=== PATIENT | male | born 1950 | race Caucasian/White ===

== ENCOUNTER → 2016-10-20 | Outpatient (CLI) | payer OTHER ==
[~2016-10-20] MED LIST: ALPR1TAB3 PO; PARO10TA PO
[2016-10-20 15:05] LABS: URINE APPEARANCE CLEAR (CLEAR); URINE BILIRUBIN NEG (NEG); URINE COLOR DK YELLOW; URINE NITRITE NEG (NEG); URINE SPECIFIC GRAVITY 1.025 (1.000-1.030); UROBILINOGEN NEG (NEG)
[2016-10-20 15:09] LABS: MANUAL MICROSCOPIC REQUIRED? NO; REVIEW REQ? NO
[2016-10-20 15:19] LABS: BLOOD UREA NITROGEN 22 mg/dl (7-18); BUN/CREATININE RATIO 23.6 (10-20); CALCIUM 8.9 mg/dl (8.5-10.1); CARBON DIOXIDE 27 mmol/L (21-32); CHLORIDE 111 mmol/L (98-107); CREATININE 0.91 mg/dl (0.60-1.40); GLUCOSE 92 mg/dl (70-99); PHOSPHORUS 2.8 mg/dl (2.5-4.9); POTASSIUM 4.5 mmol/L (3.5-5.1); SODIUM 143 mmol/L (136-145)
[2016-10-20 15:41] LABS: URINE TOTAL PROTEIN 5.4 mg/dl (0-11.9)
== END ==
LOC: C.LAB1850 13:36
PROVIDERS: ATTEND Internal Medicine Nephrology
DX: N17.9 Acute kidney failure, unspecified (principal)

== ENCOUNTER → 2016-10-25 | Outpatient (CLI) | payer OTHER ==
--- NOTE | 2016-10-25 12:40 | DIAGNOSTIC IMAGING REPORT ---
ULTRASOUND KIDNEYS AND BLADDER CLINICAL HISTORY: Acute renal insufficiency. COMPARISON STUDY: Abdominal CT dated 08/30/2015. TECHNIQUE: Real-time, grayscale, and color flow sonography of the kidneys and bladder is performed. Images are reviewed in the transverse and longitudinal planes. FINDINGS: Kidneys: The kidneys demonstrate mild cortical thinning and are normal in echotexture. The right kidney measures 10.6 cm in length and the left kidney measures 11.9 cm in length. There is no hydronephrosis. No shadowing renal calculi are identified. There is no sonographic evidence of contour deforming renal mass lesion. No perinephric fluid is identified. Bladder: The bladder is normal in appearance. The right ureteral jet was seen. IMPRESSION: 1. There is mild renal cortical thinning. No hydronephrosis is seen. 2. The bladder was normal as imaged. Electronically signed by: Catrachito Apodaca M.D. 10/25/2016 12:39 PM Dictated Date/Time: 10/25/2016 12:37 PM
== END | disposition home or self-care (01) ==
LOC: C.ULTR 11:27
PROVIDERS: ATTEND Internal Medicine Nephrology
DX: N17.9 Acute kidney failure, unspecified (principal)

== ENCOUNTER 2017-10-17 19:24 | Observation (INO) | payer OTHER ==
[~2017-10-17] VITALS: Ht 175.3 cm; Wt 67.0 kg
[2017-10-17] MEDS ORDERED: ASPIRIN 81 MG CHEW PO STA (19:53)
--- NOTE | 2017-10-17 19:59 | EMERGENCY ROOM VISIT NOTE ---
History Report prepared by Dawn: Cait Hargrove Under the Supervision of: Dr. Catrachito Gonzalez M.D. First contact with patient: 19:44 Chief Complaint: CHEST PAIN Stated Complaint: CHEST PAIN R SIDE HARD TO BREATH Nursing Triage Summary: Pt reports chest pain that started this morning. Pt denies nausea, denies SOB. Pt does report at times difficulty breathing and used his inhaler with no relief. Pt reports pain on the right side denies radiation. Pt reports that he has a hx of right bundle branch block and moderate carotid stenosis. History of Present Illness The patient is a 66 year old male who presents to the Emergency Room with complaints of right sided chest pain beginning this morning. He denies any cough , colds, congestion, nausea, SOB, diaphoresis, recent long trips, history of cancer, history of blood clots, or heart attacks. He states his pain is tolerable but at its worse, he rates his pain as a 5/10 in severity. He also notes that deep breaths worsen his pain at times. The patient reports he has a history of cerebellar issues. Source of History: patient Onset: this morning Position: chest (right) Symptom Intensity: 5/10 in severity at its worse Modifying Factors (Worsening): other (deep breaths) Associated Symptoms: No diaphoresis, No cough, No SOB, No nausea Note: Negative colds, congestion, recent long trips, history of cancer, history of blood clots, or heart attacks Review of Systems See HPI for pertinent positives & negatives. A total of 10 systems reviewed and were otherwise negative. Past Medical & Surgical Medical Problems: (1) Anxiety (2) Anxiety (3) Depression Family History No pertinent family history Social History Smoking Status: Current Every Day Smoker Alcohol Use: none, other Drug Use: none Marital Status: Housing Status: lives with family Occupation Status: employed Current/Historical Medications Scheduled Aspirin (Aspirin Ec), 81 MG PO DAILY Cholecalciferol (Vitamin D3), 2,000 INTER.UNIT PO DAILY Scheduled PRN Albuterol Hfa (Ventolin Hfa), 2 PUFFS INH Q6H PRN for SOB/Wheezing Alprazolam (Xanax), 1 MG PO QID PRN for Anxiety Fluticasone Propionate (Nasal) (Flonase Allergy Relief), 2 SPRAYS SHOLA DAILY PRN for Allergy Symptoms Allergies Coded Allergies: Prednisone (Verified Allergy, Unknown, UNKNOWN, 7/29/16) CAN'T REMEMBER Physical Exam Vital Signs Date Time Temp Pulse Resp B/P (MAP) Pulse Ox O2 Delivery O2 Flow Rate FiO2 10/17/17 22:21 72 15 145/72 96 Room Air 10/17/17 20:31 78 18 134/65 97 Room Air 10/17/17 20:01 76 20 124/77 96 Room Air 10/17/17 19:40 74 20 146/69 98 Room Air 10/17/17 19:34 Room Air 10/17/17 19:33 Room Air 10/17/17 19:27 36.7 87 18 95 Physical Exam GENERAL: Patient is in no acute distress. HEENT: No acute trauma, normocephalic atraumatic, mucous membranes moist, no nasal congestion, no scleral icterus. NECK: No stridor, no adenopathy, no meningismus, trachea is midline. LUNGS: Clear to auscultation bilaterally, no wheeze, no rhonchi, breath sounds equal. HEART: Without murmurs gallops or rubs, regular rate and rhythm. CHEST: Tender over the right lateral mid chest wall with rib compression. No rash. No contusion ABDOMEN: Soft, nontender, bowel sounds positive, no hernias, no peritonitis. EXTREMITIES: No cyanosis or edema, full range of motion of all the joints without pain or difficulty, no signs for acute trauma. NEUROLOGIC: Oriented x 3, no acute motor or sensory deficits, no focal weakness. SKIN: No rash, no jaundice, no diaphoresis. Medical Decision & Procedures ER Provider Diagnostic Interpretation: Radiology results as stated below per my review and radiologist interpretation: CHEST ONE VIEW PORTABLE CLINICAL HISTORY: 66 years-old Male presenting with CHEST PAIN. TECHNIQUE: Portable upright AP view of the chest was obtained. COMPARISON: 08/30/2015. FINDINGS: Cardiomediastinal silhouette normal. Heterogeneity of lung parenchyma. Lungs and pleural spaces clear. Degenerative changes of the thoracic spine. Upper abdomen normal. IMPRESSION: 1. No acute cardiopulmonary disease. Electronically signed by: Ike Charles M.D. 10/17/2017 8:40 PM Dictated Date/Time: 10/17/2017 8:39 PM (CHEST FOR PE) ANGIO WITH CLINICAL HISTORY: 66 years-old Male presenting with ^CHEST PAIN--IF ABLE PLEASE EVALUATE THORACIC AORTA WELL. TECHNIQUE: Multidetector CT angiography of the chest was performed after administration of intravenous contrast. 3-D volumetric and/or maximum intensity projection (MIP) images were subsequently reconstructed for review. IV contrast: 115 mL of Optiray 320. A dose lowering technique was used consistent with the principles of ALARA (as low as reasonably achievable). COMPARISON: Chest x-ray from earlier the same day. CT DOSE (mGy.cm): The estimated cumulative dose is 336.34 mGy.cm. FINDINGS: Profiling Machine Setup Operator topogram: Unremarkable. Pulmonary vasculature: The study is adequate for assessment of the pulmonary vascular tree. Subsegmental filling defects consistent with acute pulmonary emboli the anterobasal and posterior basal right lower lobe. Main pulmonary artery is not enlarged. No flattening of the interventricular septum. No intracardiac filling defect. No reflux of contrast into the hepatic veins. Remaining chest: On soft tissue windows, normal thyroid and thoracic inlet. No axillary, supraclavicular, hilar, or mediastinal lymphadenopathy. Atherosclerosis of the aorta. Normal heart size. Coronary artery calcification. No pericardial or pleural effusion. Nonobstructing calculus at the upper pole of the left kidney. On lung windows, minimal dependent changes likely atelectasis. Solid peripheral 4 mm nodule in the posterior basal right lower lobe (series 4 image 109). Solid subpleural 6 mm nodule in the medial segment of the right middle lobe (series 4 image 88). Solid subpleural 5 mm nodule in the right lower lobe (series 4 image 178). Solid subpleural 3 mm nodule in the right lower lobe (series 4 image 178). Solid peripheral 4 mm nodule in the left lower lobe (series 4 image 160). Extensive paraseptal emphysematous changes/bullae at the apices centrilobular emphysematous changes at the apices also noted. Mild bronchial wall thickening. Airways patent. On bone windows, degenerative changes of the spine. IMPRESSION: 1. Acute pulmonary emboli in subsegmental pulmonary arteries of the right lower lobe. 2. Multiple solid pulmonary nodules measuring up to 6 mm. Follow-up per [employer] 2017 recommendations. 3. Extensive emphysematous changes/bullae at the apices and bronchial wall thickening likely smoking related lung injury. The report will be called/faxed according to standard departmental protocol. Please refer to below summary of Fleischner Society 2017 recommendations for follow-up of incidental CT nodules (H Christopher et al. Guidelines for management of incidental pulmonary nodules detected on CT images: From the Fleischner Society 2017. Radiology 2017; 284: 228-243.) SOLID NODULES Single nodule; size < 6 mm * Low risk patients: No routine follow-up * High risk patients: Optional CT at 12 months Single nodule; size 6-8 mm * Low risk patients: CT at 6-12 months, then consider CT at 18-24 months * High risk patients: CT at 6-12 months, then at 18-24 months Single nodule; size > 8 mm * Either low or high risk patients: Considered CT at 3 months, PET/CT, or tissue sampling Multiple nodules; size < 6 mm * Low risk patients: No routine follow up * High risk patients: Optional CT at 12 months Multiple nodules; size 6-8 mm * Low risk patients: CT at 3-6 months, then consider CT at 18-24 months * High risk patients: CT at 3-6 months, then at 18-24 months Multiple nodules; size > 8 mm * Low risk patients: CT at 3-6 months, then consider at 18-24 months * High risk patients: CT at 3-6 months, then at 18-24 months SUBSOLID NODULES Single ground-glass nodule * Nodule size < 6 mm: No routine follow-up * Nodule size > or = 6 mm: CT at 6-12 months to confirm persistence, then CT every 2 years until 5 years Single part-solid nodule * Nodule size < 6 mm: No routine follow-up * Nodules size > or = 6 mm: CT at 3-6 months to confirm persistence. If unchanged and solid component remains < 6 mm, annual CT should be performed for 5 years Multiple nodules * Nodule size < 6 mm: CT at 3-6 months. If stable, consider CT at 2 and 4 years. * Nodules size > or = 6 mm: CT at 3-6 months. Subsequent management based on the most suspicious nodule(s) NOTE: 1) These guidelines apply to incidental nodules. These guidelines do NOT apply to patients younger than 35 years, immunocompromised patients, or patients with cancer. 2) Risk categories: * Low risk patients: Minimal or absent history of smoking and/or other known risk factors * High risk patients: History of smoking, exposure to other carcinogens, emphysema, fibrosis, upper lobe location, family history of lung cancer, etc. 3) If a nodule up to 8 mm is partly solid or is ground glass, further follow-up is required after 24 months to exclude possible slow growing adenocarcinoma. Electronically signed by: Ike Charles M.D. 10/17/2017 9:54 PM Dictated Date/Time: 10/17/2017 9:43 PM Laboratory Results 10/17/17 19:39 10/17/17 19:39 Test 10/17/17 19:39 10/17/17 20:00 10/17/17 22:10 Red Blood Count 4.86 M/uL (4.7-6.1) Mean Corpuscular Volume 90.9 fL (80-100) Mean Corpuscular Hemoglobin 31.7 pg (25-34) Mean Corpuscular Hemoglobin Concent 34.8 g/dl (32-36) RDW Standard Deviation 42.6 fL (36.4-46.3) RDW Coefficient of Variation 12.8 % (11.5-14.5) Mean Platelet Volume 8.7 fL (7.4-10.4) Prothrombin Time 10.9 SECONDS (9.0-12.0) Prothromb Time International Ratio 1.0 (0.9-1.1) Activated Partial Thromboplast Time 25.6 SECONDS (21.0-31.0) Partial Thromboplastin Ratio 1.0 Anion Gap 6.0 mmol/L (3-11) Est Creatinine Clear Calc Drug Dose 51.4 ml/min Estimated GFR () 63.5 Estimated GFR (Non- 54.8 BUN/Creatinine Ratio 15.8 (10-20) Calcium Level 9.1 mg/dl (8.5-10.1) Bedside D-Dimer > 450 ng/mlFEU (0-450) Bedside Troponin I < 0.030 ng/ml (0-0.045) Laboratory results reviewed by me. Medications Administered Medications (Trade) Dose Ordered Sig/Primo Route Start Time Stop Time Status Last Admin Dose Admin Aspirin (Aspirin Chew) 324 mg NOW STAT PO 10/17/17 19:53 10/17/17 19:55 DC 10/17/17 20:00 324 MG Lorazepam (Ativan Inj) 0.5 mg NOW STAT IV 10/17/17 22:10 10/17/17 22:13 DC 10/17/17 22:22 0.5 MG Enoxaparin Sodium (Lovenox Inj) 70 mg NOW STAT SQ 10/17/17 22:18 10/17/17 22:19 DC 10/17/17 23:29 70 MG Nicotine (Nicoderm Cq 21MG Patch) 1 patch NOW STAT EXT 10/17/17 22:54 10/17/17 22:55 DC 10/17/17 23:26 1 PATCH ECG Per My Interpretation Indication: chest pain Rate (beats per minute): 80 Rhythm: other (possible ectopic atrial rhythm versus sinus rhythm) Findings: PAC, RBBB, other (no ST elevation) Comparison ECG Date: 08/30/15 Change: no significant change ED Course 1945: The patient was evaluated in room B2. A complete history and physical exam was performed. 1952: Ordered Aspirin 324 mg PO 2209: Ordered Lorazepam 0.5 mg IV, Enoxaparin Sodium 1 ea SQ, Nicotine 1 patch TD 2217: Discussed the patient's case with Dr. Matthew Cabrera, [facility] Hospitalist. The patient will be evaluated for further management. 2217: Ordered Lovenox Inj 70 mg SQ Medical Decision Differential diagnosis: Etiologies such as musculoskeletal pain, rib fracture, pneumonia, aortic dissection, pneumothorax, PE, NE as well as others were entertained. There is no leukocytosis or concerning anemia. No significant electrolyte abnormality or kidney failure. No coagulopathy. EKG shows a sinus rhythm with a short WI, there was a right bundle branch block. No change compared to previous EKGs. Cardiac enzyme testing 1 is not consistent with acute cardiac injury. Chest film does not show mediastinal widening, pneumonia or pneumothorax. D-dimer was elevated. Chest CT does show a right-sided pulmonary embolus. The patient received oral aspirin for pain. He received IV Ativan for anxiety. He was given a nicotine patch and also a dose of subcu Lovenox. The patient presents with right-sided chest pain and has been found to have a right-sided pulmonary embolus. Further workup for the cause for the PE is warranted. Anticoagulation is required. A hospital stay was felt needed. I spoke to the patient and case management. The on-call hospitalist was consulted. Medication Reconcilliation Current Medication List: was personally reviewed by me Blood Pressure Screening Patient's blood pressure: Normal blood pressure Blood pressure disposition: Did not require urgent referral Consults Time Called: 2209 Consulting Physician: Dr. Matthew Cabrera [facility] Hospitalist Returned Call: 8 Discussed the patient's case with Dr. Matthew Cabrera [facility] Hospitalist. The patient will be evaluated for further management. Impression Primary Impression: Pulmonary embolism Additional Impression: Right-sided chest pain Scribe Attestation The scribe's documentation has been prepared under my direction and personally reviewed by me in its entirety. I confirm that the note above accurately reflects all work, treatment, procedures, and medical decision making performed by me. Departure Information Dispostion Being Evaluated By Hospitalist (Dr. Matthew Cabrera [facility] Hospitalist) Referrals No Doctor, Assigned (PCP) Patient Instructions My [facility] Problem Qualifiers
[2017-10-17 20:05] LABS: HEMATOCRIT 44.2 % (42-52); HEMOGLOBIN 15.4 g/dL (14.0-18.0); MEAN CELL VOLUME 90.9 fL (80-100); MEAN CORPUSCULAR HEMOGLOBIN 31.7 pg (25-34); MEAN CORPUSCULAR HGB CONC 34.8 g/dl (32-36); MEAN PLATELET VOLUME 8.7 fL (7.4-10.4); PLATELET COUNT 260 K/uL (130-400); RED CELL DISTRIBUTION WIDTH CV 12.8 % (11.5-14.5); RED CELL DISTRIBUTION WIDTH SD 42.6 fL (36.4-46.3); WHITE BLOOD COUNT 9.15 K/uL (4.8-10.8)
[2017-10-17 20:37] LABS: CALCIUM 9.1 mg/dl (8.5-10.1); CREATININE 1.34 mg/dl (0.60-1.40)
[2017-10-17] MEDS ORDERED: VNTHFA/IN INH (20:37)
[2017-10-17] MEDS ORDERED: FLUT0.15 NAE (20:37)
[2017-10-17] MEDS ORDERED: ALPR-385 PO (20:37)
[2017-10-17] MEDS ORDERED: CHOL2000 PO (20:37)
[2017-10-17] MEDS ORDERED: ASPI81TA28 PO (20:37)
[2017-10-17 20:40] LABS: PTT PATIENT 25.6 SECONDS (21.0-31.0)
--- NOTE | 2017-10-17 20:41 | DIAGNOSTIC IMAGING REPORT ---
CHEST ONE VIEW PORTABLE CLINICAL HISTORY: 66 years-old Male presenting with CHEST PAIN. TECHNIQUE: Portable upright AP view of the chest was obtained. COMPARISON: 08/30/2015. FINDINGS: Cardiomediastinal silhouette normal. Heterogeneity of lung parenchyma. Lungs and pleural spaces clear. Degenerative changes of the thoracic spine. Upper abdomen normal. IMPRESSION: 1. No acute cardiopulmonary disease. Electronically signed by: Ike Charles M.D. 10/17/2017 8:40 PM Dictated Date/Time: 10/17/2017 8:39 PM
--- NOTE | 2017-10-17 21:55 | DIAGNOSTIC IMAGING REPORT ---
(CHEST FOR PE) ANGIO WITH CLINICAL HISTORY: 66 years-old Male presenting with ^CHEST PAIN--IF ABLE PLEASE EVALUATE THORACIC AORTA WELL. TECHNIQUE: Multidetector CT angiography of the chest was performed after administration of intravenous contrast. 3-D volumetric and/or maximum intensity projection (MIP) images were subsequently reconstructed for review. IV contrast: 115 mL of Optiray 320. A dose lowering technique was used consistent with the principles of ALARA (as low as reasonably achievable). COMPARISON: Chest x-ray from earlier the same day. CT DOSE (mGy.cm): The estimated cumulative dose is 336.34 mGy.cm. FINDINGS: Fur Coat Sewer topogram: Unremarkable. Pulmonary vasculature: The study is adequate for assessment of the pulmonary vascular tree. Subsegmental filling defects consistent with acute pulmonary emboli the anterobasal and posterior basal right lower lobe. Main pulmonary artery is not enlarged. No flattening of the interventricular septum. No intracardiac filling defect. No reflux of contrast into the hepatic veins. Remaining chest: On soft tissue windows, normal thyroid and thoracic inlet. No axillary, supraclavicular, hilar, or mediastinal lymphadenopathy. Atherosclerosis of the aorta. Normal heart size. Coronary artery calcification. No pericardial or pleural effusion. Nonobstructing calculus at the upper pole of the left kidney. On lung windows, minimal dependent changes likely atelectasis. Solid peripheral 4 mm nodule in the posterior basal right lower lobe (series 4 image 109). Solid subpleural 6 mm nodule in the medial segment of the right middle lobe (series 4 image 88). Solid subpleural 5 mm nodule in the right lower lobe (series 4 image 178). Solid subpleural 3 mm nodule in the right lower lobe (series 4 image 178). Solid peripheral 4 mm nodule in the left lower lobe (series 4 image 160). Extensive paraseptal emphysematous changes/bullae at the apices centrilobular emphysematous changes at the apices also noted. Mild bronchial wall thickening. Airways patent. On bone windows, degenerative changes of the spine. IMPRESSION: 1. Acute pulmonary emboli in subsegmental pulmonary arteries of the right lower lobe. 2. Multiple solid pulmonary nodules measuring up to 6 mm. Follow-up per [employer] Society 2017 recommendations. 3. Extensive emphysematous changes/bullae at the apices and bronchial wall thickening likely smoking related lung injury. The report will be called/faxed according to standard departmental protocol. Please refer to below summary of Fleischner Society 2017 recommendations for follow-up of incidental CT nodules (Dandre White et al. Guidelines for management of incidental pulmonary nodules detected on CT images: From the Fleischner Society 2017. Radiology 2017; 284: 228-243.) SOLID NODULES Single nodule; size < 6 mm * Low risk patients: No routine follow-up * High risk patients: Optional CT at 12 months Single nodule; size 6-8 mm * Low risk patients: CT at 6-12 months, then consider CT at 18-24 months * High risk patients: CT at 6-12 months, then at 18-24 months Single nodule; size > 8 mm * Either low or high risk patients: Considered CT at 3 months, PET/CT, or tissue sampling Multiple nodules; size < 6 mm * Low risk patients: No routine follow up * High risk patients: Optional CT at 12 months Multiple nodules; size 6-8 mm * Low risk patients: CT at 3-6 months, then consider CT at 18-24 months * High risk patients: CT at 3-6 months, then at 18-24 months Multiple nodules; size > 8 mm * Low risk patients: CT at 3-6 months, then consider at 18-24 months * High risk patients: CT at 3-6 months, then at 18-24 months SUBSOLID NODULES Single ground-glass nodule * Nodule size < 6 mm: No routine follow-up * Nodule size > or = 6 mm: CT at 6-12 months to confirm persistence, then CT every 2 years until 5 years Single part-solid nodule * Nodule size < 6 mm: No routine follow-up * Nodules size > or = 6 mm: CT at 3-6 months to confirm persistence. If unchanged and solid component remains < 6 mm, annual CT should be performed for 5 years Multiple nodules * Nodule size < 6 mm: CT at 3-6 months. If stable, consider CT at 2 and 4 years. * Nodules size > or = 6 mm: CT at 3-6 months. Subsequent management based on the most suspicious nodule(s) NOTE: 1) These guidelines apply to incidental nodules. These guidelines do NOT apply to patients younger than 35 years, immunocompromised patients, or patients with cancer. 2) Risk categories: * Low risk patients: Minimal or absent history of smoking and/or other known risk factors * High risk patients: History of smoking, exposure to other carcinogens, emphysema, fibrosis, upper lobe location, family history of lung cancer, etc. 3) If a nodule up to 8 mm is partly solid or is ground glass, further follow-up is required after 24 months to exclude possible slow growing adenocarcinoma. Electronically signed by: Ike Charles M.D. 10/17/2017 9:54 PM Dictated Date/Time: 10/17/2017 9:43 PM
[2017-10-17] MEDS ORDERED: LORAZEPAM 2 MG/ML 1 ML VIAL IV STA (22:10)
[2017-10-17] MEDS ORDERED: NICOTINE 21 MG/24 HR TDSY TD STA (22:10)
[2017-10-17] MEDS ORDERED: ENOXAPARIN 1 MG/KG SQ STA (22:10)
[2017-10-17] MEDS ORDERED: ENOXAPARIN 80 MG/0.8 ML SYR SQ STA (22:18)
[2017-10-17] MEDS ORDERED: NICOTINE 21 MG/24 HR TDSY EXT STA (22:54)
[2017-10-18] MEDS ORDERED: NITROGLYCERIN 0.4 MG SL PER TAB CHARGE SL PRN (00:45)
[2017-10-18] MEDS ORDERED: ALUMINUM/MAGNESIUM/SIMETH (MAALOX MAX) 30 ML UDC PO PRN (00:45)
[2017-10-18] MEDS ORDERED: MAGNESIUM HYDROXIDE SUSP 30 ML UDC PO PRN (00:45)
[2017-10-18] MEDS ORDERED: ALPRAZOLAM 0.5 MG TAB PO PRN (00:45)
[2017-10-18] MEDS ORDERED: POLYETHYLENE (MIRALAX) 17 GM PACK PO PRN (00:45)
[2017-10-18] MEDS ORDERED: MoRPHine SULFATE 4 MG/ML 1 ML CARP\\VIAL IV PRN (00:45)
[2017-10-18] MEDS ORDERED: ONDANSETRON INJ 2 MG/ML 2 ML VIAL IV PRN (00:45)
[2017-10-18] MEDS ORDERED: ALBUTEROL HFA 8 GM INHALER INH PRN (00:45)
[2017-10-18] MEDS ORDERED: ACETAMINOPHEN 325 MG TAB PO PRN (00:45)
[2017-10-18] MEDS ORDERED: FLUTICASONE PROPIONATE NA SPR 16 GM BTL NAE PRN (00:45)
--- NOTE | 2017-10-18 00:51 | History and Physical ---
History & Physical Date & Time of Service: October 18, 2017 at 00:51 Chief Complaint: Chest Pain R Side Hard To Breath Primary Care Physician: No Doctor, Assigned History of Present Illness Source: patient 66 yo M with pMHx of cerebellar degeneration, h/o TIA, h/o colitis with known diverticulosis, known lung nodule, significant tobacco abuse presents to the ER with severe right sided chest pain that occurred while at rest this morning. Not associated with nausea or diaphoresis, but pleuritic in nature. The pain did not radiate anywhere and the patient did not attempt any pain medication. He has no h/o WI. He came to the ER for further evaluation. Patient states at baseline he is very healthy. Despite a 50 year extensive smoking history, he denies COPD or need for inhalers. 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 He says he gets annual CT chest and has known about the pulm nodule, but does admit to weight loss in last 3-4 months (has to tighten belt loop). He denies h/o malignancy, clots, recent surgery/immobilization, recent travel. He denies fevers/chills, headaches, palpitations, hemoptysis, abdominal pain, lower extremity swelling or rashes. He is tolerating diet without nausea or vomiting, ambulating independently at baseline, and voiding and stooling appropriately. In ER, patient noted to have elevated d.dimer, with PE confirmed on CT. Vitals stable and pain under control. ROS is unremarkable except as noted above. Past Medical/Surgical History anxiety cerebellar degeneration depression h/o TIA h/o colitis with known diverticulosis h/o renal stone lung nodule moderate right carotid stenosis tobacco abuse Family History No pertinent family history Non contributory Social History Smoking Status: Current Every Day Smoker Smokeless Tobacco Use: No Alcohol Use: none Drug Use: none Marital Status: Housing status: lives alone Occupational Status: employed Immunizations History of Influenza Vaccine: Unknown History of Tetanus Vaccine?: Unknown History of Pneumococcal: Unknown History of Hepatitis B Vaccine: Unknown Allergies Coded Allergies: Prednisone (Verified Allergy, Unknown, UNKNOWN, 01/02/16) CAN'T REMEMBER Home Medications Scheduled Apixaban (Eliquis Starter Pack), 1 UNIT PO UD Aspirin (Aspirin Ec), 81 MG PO DAILY Atorvastatin (Lipitor), 40 MG PO QAM Cholecalciferol (Vitamin D3), 2,000 INTER.UNIT PO DAILY Scheduled PRN Albuterol Hfa (Ventolin Hfa), 2 PUFFS INH Q6H PRN for SOB/Wheezing Alprazolam (Xanax), 1 MG PO QID PRN for Anxiety Fluticasone Propionate (Nasal) (Flonase Allergy Relief), 2 SPRAYS SHOLA DAILY PRN for Allergy Symptoms Physical Exam Vital Signs Date Time Temp Pulse Resp B/P (MAP) Pulse Ox O2 Delivery O2 Flow Rate FiO2 10/18/17 00:36 72 18 94 Room Air 10/18/17 00:31 143/77 10/18/17 00:06 63 14 95 10/17/17 23:36 69 17 95 10/17/17 23:31 146/72 10/17/17 22:36 69 23 96 10/17/17 22:31 139/73 10/17/17 22:21 72 15 145/72 96 Room Air 10/17/17 22:21 145/72 10/17/17 21:06 74 23 97 10/17/17 21:00 131/69 10/17/17 20:36 73 20 95 10/17/17 20:31 78 18 134/65 97 Room Air 10/17/17 20:01 76 20 124/77 96 Room Air 10/17/17 19:40 74 20 146/69 98 Room Air 10/17/17 19:34 Room Air 10/17/17 19:33 Room Air 10/17/17 19:27 36.7 87 18 95 General Appearance: WD/WN, no apparent distress Head: normocephalic, atraumatic Eyes: sclerae normal ENT: hearing grossly normal, pharynx normal Neck: supple, no JVD Respiratory/Chest: normal breath sounds, no respiratory distress, no accessory muscle use Cardiovascular: regular rate, rhythm, normal peripheral pulses Abdomen/GI: normal bowel sounds, non tender, soft Back: normal inspection Extremities/Musculoskelatal: no calf tenderness, no pedal edema Neurologic/Psych: alert, normal mood/affect, oriented x 3 Skin: normal color, warm/dry, no rash Diagnostics Laboratory Results Results Past 24 Hours Test 10/17/17 19:39 10/17/17 20:00 10/17/17 23:57 Range/Units White Blood Count 9.15 4.8-10.8 K/uL Red Blood Count 4.86 4.7-6.1 M/uL Hemoglobin 15.4 14.0-18.0 g/dL Hematocrit 44.2 42-52 % Mean Corpuscular Volume 90.9 80-100 fL Mean Corpuscular Hemoglobin 31.7 25-34 pg Mean Corpuscular Hemoglobin Concent 34.8 32-36 g/dl RDW Standard Deviation 42.6 36.4-46.3 fL RDW Coefficient of Variation 12.8 11.5-14.5 % Platelet Count 260 130-400 K/uL Mean Platelet Volume 8.7 7.4-10.4 fL Prothrombin Time 10.9 9.0-12.0 SECONDS Prothromb Time International Ratio 1.0 0.9-1.1 Activated Partial Thromboplast Time 25.6 21.0-31.0 SECONDS Partial Thromboplastin Ratio 1.0 Sodium Level 142 136-145 mmol/L Potassium Level 4.0 3.5-5.1 mmol/L Chloride Level 108 98-107 mmol/L Carbon Dioxide Level 28 21-32 mmol/L Anion Gap 6.0 3-11 mmol/L Blood Urea Nitrogen 21 7-18 mg/dl Creatinine 1.34 0.60-1.40 mg/dl Est Creatinine Clear Calc Drug Dose 51.4 ml/min Estimated GFR () 63.5 Estimated GFR (Non- 54.8 BUN/Creatinine Ratio 15.8 10-20 Random Glucose 131 70-99 mg/dl Calcium Level 9.1 8.5-10.1 mg/dl Bedside D-Dimer > 450 0-450 ng/mlFEU Bedside Troponin I < 0.030 0-0.045 ng/ml Diagnostic Radiology CHEST ONE VIEW PORTABLE CLINICAL HISTORY: 66 years-old Male presenting with CHEST PAIN. TECHNIQUE: Portable upright AP view of the chest was obtained. COMPARISON: 08/30/2015. FINDINGS: Cardiomediastinal silhouette normal. Heterogeneity of lung parenchyma. Lungs and pleural spaces clear. Degenerative changes of the thoracic spine. Upper abdomen normal. IMPRESSION: 1. No acute cardiopulmonary disease. (CHEST FOR PE) ANGIO WITH CLINICAL HISTORY: 66 years-old Male presenting with ^CHEST PAIN--IF ABLE PLEASE EVALUATE THORACIC AORTA WELL. TECHNIQUE: Multidetector CT angiography of the chest was performed after administration of intravenous contrast. 3-D volumetric and/or maximum intensity projection (MIP) images were subsequently reconstructed for review. IV contrast: 115 mL of Optiray 320. A dose lowering technique was used consistent with the principles of ALARA (as low as reasonably achievable). COMPARISON: Chest x-ray from earlier the same day. CT DOSE (mGy.cm): The estimated cumulative dose is 336.34 mGy.cm. 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 Pulmonary vasculature: The study is adequate for assessment of the pulmonary vascular tree. Subsegmental filling defects consistent with acute pulmonary emboli the anterobasal and posterior basal right lower lobe. Main pulmonary artery is not enlarged. No flattening of the interventricular septum. No intracardiac filling defect. No reflux of contrast into the hepatic veins. Remaining chest: On soft tissue windows, normal thyroid and thoracic inlet. No axillary, supraclavicular, hilar, or mediastinal lymphadenopathy. Atherosclerosis of the aorta. Normal heart size. Coronary artery calcification. No pericardial or pleural effusion. Nonobstructing calculus at the upper pole of the left kidney. On lung windows, minimal dependent changes likely atelectasis. Solid peripheral 4 mm nodule in the posterior basal right lower lobe (series 4 image 109). Solid subpleural 6 mm nodule in the medial segment of the right middle lobe (series 4 image 88). Solid subpleural 5 mm nodule in the right lower lobe (series 4 image 178). Solid subpleural 3 mm nodule in the right lower lobe (series 4 image 178). Solid peripheral 4 mm nodule in the left lower lobe (series 4 image 160). Extensive paraseptal emphysematous changes/bullae at the apices centrilobular emphysematous changes at the apices also noted. Mild bronchial wall thickening. Airways patent. On bone windows, degenerative changes of the spine. IMPRESSION: 1. Acute pulmonary emboli in subsegmental pulmonary arteries of the right lower lobe. 2. Multiple solid pulmonary nodules measuring up to 6 mm. Follow-up per [employer] 2017 recommendations. 3. Extensive emphysematous changes/bullae at the apices and bronchial wall thickening likely smoking related lung injury. ULTRASOUND VENOUS DOPPLER LWR EXT BILA CLINICAL HISTORY: Pulmonary embolism COMPARISON STUDY: No previous studies for comparison. FINDINGS: Real-time and color flow Doppler imaging were performed. Flow was seen within the femoral, popliteal and calf veins with no intraluminal thrombus demonstrated. The saphenous vein is patent. IMPRESSION: No evidence of lower extremity DVT. EKG Vent. rate 80 BPM WV interval 126 ms QRS duration 130 ms QT/QTc 378/435 ms P-R-T axes -35 95 60 Unusual P axis, possible ectopic atrial rhythm with Premature supraventricular complexes Right bundle branch block Abnormal ECG When compared with ECG of 30-AUG-2015 16:28, ectopic atrial rhythm has replaced Sinus rhythm Impression Assessment and Plan 66 yo M with pMHx of cerebellar degeneration, h/o TIA, h/o colitis with known diverticulosis, known lung nodule, significant tobacco abuse presents to the ER with severe right sided chest pain that occurred while at rest this morning, with elevated d.dimer, and PE confirmed on CT Pulmonary embolism - CT: Acute pulmonary emboli in subsegmental pulmonary arteries of the right lower lobe. - Started on therapeutic apixaban - LE Doppler negative - Coag work up pending. Would consider additional malignancy work up (work up lung nodules, colonoscopy) - Morphine PRN pain Pulm nodules: - CT: Multiple solid pulmonary nodules measuring up to 6 mm - Pulm consulted Likely COPD - CT: extensive emphysematous changes/bullae at the apices and bronchial wall thickening likely smoking related lung injury - DuoNebs ordered H/o TIA - Continue aspirin - Atorvastatin initiated Anxiety - Continue Xanax Tobacco abuse - encouraged cessation - nicotine patch ordered VTE ppx - SCDs - Apixiban as above Code: FULL Attending addendum: I have physically seen this patient, have supervised the medical residents activities, and agree with the H&P unless as otherwise noted. Assessment and Plan: Acute right lower lobe pulmonary emboli/pulmonary nodules up to 6 mm in size/ COPD/tobacco use disorder-- Negative DVT bilateral lower extremities Start apixaban therapeutic counseling. Hypercoagulable workup pending Duo nebs as needed Pulse ox in the mid 90s and comfortable. Monitor on telemetry overnight in hospital to monitor for right heart strain. Enroll in hospital pulmonary nodule program. Consult pulmonary to see patient in the hospital and follow-up outpatient. Tobacco cessation counseling. TIA history-- Continue aspirin. Hyperlipidemia-- Continue atorvastatin. Advanced Directives Existing Living Will: No Existing Power of Room Service Supervisor: No Existing Health Care Proxy: No Resuscitation Status FULL VTE Prophylaxis Will order VTE Prophylaxis: Yes Social Service Consult None Apply Resident Tracking Resident Involvement: Resident Care Provided Care Provided: Adult Hospital Medicine
[2017-10-18] MEDS ORDERED: IV FLUIDS COMPLETED PRN (01:30)
[2017-10-18 03:00] VITALS: BP 148/70; PULSE 63; TEMP 36.6; O2SAT 97; Ht 175.3 cm; Wt 67.0 kg
[2017-10-18 06:22] LABS: BASO % 0.3 %; BASO ABS # 0.03 K/uL (0-0.2); EOS % 0.1 %; EOS ABS # 0.01 K/uL (0-0.5); HEMATOCRIT 42.6 % (42-52); HEMOGLOBIN 14.6 g/dL (14.0-18.0); IG# 0.01 K/uL (0.00-0.02); LYMPH % 41.3 %; LYMPH ABS # 3.88 K/uL (1.2-3.4); MEAN CORPUSCULAR HEMOGLOBIN 31.2 pg (25-34); MEAN CORPUSCULAR HGB CONC 34.3 g/dl (32-36); MEAN PLATELET VOLUME 8.7 fL (7.4-10.4); MONO % 7.8 %; MONO ABS # 0.73 K/uL (0.11-0.59); NEUT % 50.4 %; NEUT ABS # 4.74 K/uL (1.4-6.5); PLATELET COUNT 248 K/uL (130-400); RED CELL DISTRIBUTION WIDTH CV 13.1 % (11.5-14.5); RED CELL DISTRIBUTION WIDTH SD 43.3 fL (36.4-46.3)
--- NOTE | 2017-10-18 06:33 | DIAGNOSTIC IMAGING REPORT ---
ULTRASOUND VENOUS DOPPLER LWR EXT BILA CLINICAL HISTORY: Pulmonary embolism COMPARISON STUDY: No previous studies for comparison. FINDINGS: Real-time and color flow Doppler imaging were performed. Flow was seen within the femoral, popliteal and calf veins with no intraluminal thrombus demonstrated. The saphenous vein is patent. IMPRESSION: No evidence of lower extremity DVT. Electronically signed by: Jose Antonio Shea M.D. 10/18/2017 6:31 AM Dictated Date/Time: 10/18/2017 6:31 AM
[2017-10-18 06:40] LABS: CALCIUM 8.5 mg/dl (8.5-10.1); CREATININE 1.21 mg/dl (0.60-1.40); POTASSIUM 4.1 mmol/L (3.5-5.1)
[2017-10-18 07:54] VITALS: BP 110/57; PULSE 57; TEMP 36.5; O2SAT 94
[2017-10-18] MEDS ORDERED: NICOTINE 14 MG/24 HR TDSY TD SCH (09:00)
[2017-10-18] MEDS ORDERED: ASPIRIN 81 MG ECTAB PO SCH (09:00)
[2017-10-18] MEDS ORDERED: APIXABAN 2.5 MG TAB PO SCH (09:00)
[2017-10-18] MEDS ORDERED: ATORVASTATIN 40 MG TAB PO SCH (09:30)
[2017-10-18 11:25] VITALS: BP 131/66; PULSE 66; TEMP 36.8; O2SAT 96
--- NOTE | 2017-10-18 12:44 | PULMONARY CONSULTATION ---
DATE OF CONSULTATION: 10/18/2017 REASON FOR CONSULTATION: COPD/pulmonary embolism. HISTORY OF PRESENT ILLNESS: A 66-year-old white male from the [place] area was admitted yesterday with right-sided pleuritic type chest pain and dyspnea. 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 He continues to smoke and has smoked 1 to 1-1/2 packs of cigarettes a day since his teens. Yesterday morning, he felt right-sided pleuritic pain associated with dyspnea. He still worked on his el?[employer] but when the symptoms got worse, he was brought to the Emergency Room. He has had a normal a.m. "smoker's cough." Denies hemoptysis, previous myocardial infarction. His pain was somewhat limited 4/10 according to his history and has abated in the last 12 hours. He has not exerted himself, but at rest he does not feel dyspneic. He has a rescue inhaler at home and Flonase nasal spray for seasonal allergic rhinitis. He states normally his breathing is sometimes problematic, for the most time he is able to enjoy his senior living and able to walk even on a level plane with only mild symptoms. Chest x-ray on admission showed no acute pulmonary disease, but a CT angiogram performed showed a 4 mm nodule in the posterior basal right lower lobe and a solid subpleural 6 mm nodule in the medial segment of the right middle lobe with another 5 mm nodule in the right lower lobe. There were also solid subpleural 3 mm nodule in the right lower lobe and a 4 mm nodule in the left lower lobe. There is extensive paraseptal emphysematous changes and bullae at the apices with central lobular emphysema also noted. Mild bronchial wall thickening was seen. There were also acute pulmonary emboli seen in the anterobasal and posterobasal right lower lobe seen. He was admitted onto the hospitalist service. He has had no previous history of pulmonary thromboembolic disease, but he has noted both lower extremities in the past several weeks have shown some pitting edema, especially when he wears support stockings. The Doppler of the lower extremities was negative and the patient has not had a recent colonoscopy. His primary care physician is from [facility], Dr. Gillespie, but has not seen a physician in a long time period. The patient currently is receiving aerosolized bronchodilator, was started on Eliquis and did receive Lovenox yesterday 70 mg subQ and Nicoderm patch has been applied. PHYSICAL EXAMINATION: CURRENT VITAL SIGNS: Temperature 36.8, pulse 66 and regular, respiratory rate 18, blood pressure 131/66, 96% sat on room air. SKIN: Warm and dry. HEENT: Atraumatic, normocephalic, PERRLA, EOMI. Conjunctivae pink. Sclerae nonicteric. Fundi benign. Tympanic membranes within normal limits. Pharyngeal exam is intact. NECK: Neck veins are not distended at 45 degrees. No obvious adenopathy in the supra or infraclavicular areas. LUNGS: Distant P and A. I do not hear a rub, marked hyperresonance noted. CARDIAC EXAM: Regular rate and rhythm. I do not appreciate a gallop. ABDOMEN: Soft, scaphoid. No evidence for hepatosplenomegaly. EXTREMITIES: Trace pedal edema. Negative Homans sign. NEUROLOGICAL: Cranial nerves II through XII grossly intact. LABORATORY DATA: White count 9400, H and H 14.6 and 42.6. Anticardiolipin IgG, IgA, and IgM antibodies are pending. Serum complement levels are normal. Beta-2 GPI, IgA, IgM, and IgG antibodies are pending. Prothrombin gene mutation pending. Serum homocysteine level pending. OVERALL ASSESSMENT: A 66-year-old with moderately severe COPD, multiple subcentimeter pulmonary nodules, admitted with acute onset of right-sided pleuritic pain that seems to have resolved involved with several small emboli involving the right lower lobe interlobar pulmonary arteries without hypoxemia or signs of hemodynamic instability. The patient is eager to go home and is started on Eliquis, did receive 1 injection of Lovenox yesterday and certainly will need close surveillance of these multiple pulmonary nodules with a repeat CT scan in 3-4 months. In addition, I believe he needs to be followed for his COPD at our pulmonary clinic and is to be kept on Eliquis for a full 6 months. There is concern that this episode was unprovoked about an underlying neoplasm, but I see nothing on his chest CT scan that is actionable at this point in time, but certainly a screening colonoscopy would be important as well as a PSA. The patient is undergoing a hypercoagulable workup with labs and serologies already sent for. We will discuss further with primary care service.Will discuss w hospitalist his going home this afternoon on Elislim w f/up in several weeks at my clinic. ARIELA
[2017-10-18 12:46] VITALS: PULSE 67; O2SAT 97
[2017-10-18] MEDS: ALBUT/IPRATROP 3MG/0.5MG NEB 3 ML VIAL INH SCH ×2 (12:46→15:07)
[2017-10-18] MEDS ORDERED: APIX5TAB2 PO (14:56)
--- NOTE | 2017-10-18 15:02 | Discharge Instructions ---
Discharge Instructions Date of Service October 18, 2017. Admission Reason for Admission: Pulmonary Embolism, Right-Sided Chest Pain Discharge Discharge Diagnosis / Problem: Pulmonary Embolism Discharge Goals Goal(s): Improve function, Diagnostic testing, Therapeutic intervention Activity Recommendations Activity Limitations: resume your previous activity Exercise/Sports Limitations: as tolerated Shower/Bathe: no limitations . Instructions / Follow-Up Instructions / Follow-Up You were diagnosed with a clot in the right lung. Fortunately, you did not require oxygen and your pain was well controlled so we felt that you could be discharged home with medication to treat this. You need to be on a blood thinner to prevent progression and to prevent new clots from forming. We have started you on Eliquis. Please take this as directed. You will likely need this for at least 6 months. This medication does increase your tendency to bleed. Please watch for signs of new bleeding with this medication and call your family doctor if this occurs. Given your history of mini-stroke, we have also started you on a cholesterol medication, Atorvastatin 40 mg daily. This will prevent these from occurring in the future. To prevent future occurrences of this, smoking cessation is also important. Furthermore, please continue being as active as you can tolerate inactivity increases risk of clot formation. Regarding your COPD, you will be followed by our pulmonary service as an outpatient. We will schedule for you to see them in 2 weeks. They will monitor your COPD and lung nodules. If your symptoms fail to improve, acutely worsen, please seek medical attention immediately by either calling your primary care provider or going to your nearest emergency department. Otherwise, please see your primary care provider within 1 week to ensure that your symptoms continue to improve. They will ensure that you are up to date on all your primary preventive screening. It was a pleasure to be involved in your care and we wish you all the best. Current Hospital Diet Patient's current hospital diet: AHA Diet (Heart Healthy) Discharge Diet Recommended Diet: AHA Diet (Heart Healthy) Pending Studies Studies pending at discharge: yes List of pending studies: Hypercoagulation studies [facility] Medical Emergencies . Who to Call and When: Medical Emergencies: If at any time you feel your situation is an emergency, please call 911 immediately. . Non-Emergent Contact Non-Emergency issues call your: Primary Care Provider Call Non-Emergent contact if: you have a fever, your pain is concerning you, you have any medication questions . . "Provider Documentation" section prepared by Tomi Boothe. .
[2017-10-18] MEDS ORDERED: LPT40 PO (15:05)
[2017-10-18 15:08] VITALS: PULSE 75; O2SAT 98
[2017-10-18 15:14] VITALS: BP 131/66; PULSE 75; TEMP 36.8; O2SAT 98
--- NOTE | 2017-10-18 15:31 | Discharge Summary ---
Discharge Summary Date of Service October 18, 2017. Discharge Summary Admission Date: October 18, 2017 at 00:50 Discharge Date: October 18, 2017 Discharge Disposition: Home Principal Diagnosis: Right pulmonary embolism Problems/Secondary Diagnoses: COPD, hx TIA Immunizations: Have You Had Influenza Vaccine: Unknown History of Tetanus Vaccine?: Unknown History of Pneumococcal: Unknown History of Hepatitis B Vaccine: Unknown Procedures: [~ rep ct add3]] (CHEST FOR PE) ANGIO WITH CLINICAL HISTORY: 66 years-old Male presenting with ^CHEST PAIN--IF ABLE PLEASE EVALUATE THORACIC AORTA WELL. TECHNIQUE: Multidetector CT angiography of the chest was performed after administration of intravenous contrast. 3-D volumetric and/or maximum intensity projection (MIP) images were subsequently reconstructed for review. IV contrast: 115 mL of Optiray 320. A dose lowering technique was used consistent with the principles of ALARA (as low as reasonably achievable). COMPARISON: Chest x-ray from earlier the same day. CT DOSE (mGy.cm): The estimated cumulative dose is 336.34 mGy.cm. FINDINGS: Morgue Attendant topogram: Unremarkable. Pulmonary vasculature: The study is adequate for assessment of the pulmonary vascular tree. Subsegmental filling defects consistent with acute pulmonary emboli the anterobasal and posterior basal right lower lobe. Main pulmonary artery is not enlarged. No flattening of the interventricular septum. No intracardiac filling defect. No reflux of contrast into the hepatic veins. Remaining chest: On soft tissue windows, normal thyroid and thoracic inlet. No axillary, supraclavicular, hilar, or mediastinal lymphadenopathy. Atherosclerosis of the aorta. Normal heart size. Coronary artery calcification. No pericardial or pleural effusion. Nonobstructing calculus at the upper pole of the left kidney. On lung windows, minimal dependent changes likely atelectasis. Solid peripheral 4 mm nodule in the posterior basal right lower lobe (series 4 image 109). Solid subpleural 6 mm nodule in the medial segment of the right middle lobe (series 4 image 88). Solid subpleural 5 mm nodule in the right lower lobe (series 4 image 178). Solid subpleural 3 mm nodule in the right lower lobe (series 4 image 178). Solid peripheral 4 mm nodule in the left lower lobe (series 4 image 160). Extensive paraseptal emphysematous changes/bullae at the apices centrilobular emphysematous changes at the apices also noted. Mild bronchial wall thickening. Airways patent. On bone windows, degenerative changes of the spine. IMPRESSION: 1. Acute pulmonary emboli in subsegmental pulmonary arteries of the right lower lobe. 2. Multiple solid pulmonary nodules measuring up to 6 mm. Follow-up per [employer] 2017 recommendations. 3. Extensive emphysematous changes/bullae at the apices and bronchial wall thickening likely smoking related lung injury. The report will be called/faxed according to standard departmental protocol. Please refer to below summary of Fleischner Society 2017 recommendations for follow-up of incidental CT nodules (Dandre White et al. Guidelines for management of incidental pulmonary nodules detected on CT images: From the Fleischner Society 2017. Radiology 2017; 284: 228-243.) SOLID NODULES Single nodule; size < 6 mm * Low risk patients: No routine follow-up * High risk patients: Optional CT at 12 months Single nodule; size 6-8 mm * Low risk patients: CT at 6-12 months, then consider CT at 18-24 months * High risk patients: CT at 6-12 months, then at 18-24 months Single nodule; size > 8 mm * Either low or high risk patients: Considered CT at 3 months, PET/CT, or tissue sampling Multiple nodules; size < 6 mm * Low risk patients: No routine follow up * High risk patients: Optional CT at 12 months Multiple nodules; size 6-8 mm * Low risk patients: CT at 3-6 months, then consider CT at 18-24 months * High risk patients: CT at 3-6 months, then at 18-24 months Multiple nodules; size > 8 mm * Low risk patients: CT at 3-6 months, then consider at 18-24 months * High risk patients: CT at 3-6 months, then at 18-24 months SUBSOLID NODULES Single ground-glass nodule * Nodule size < 6 mm: No routine follow-up * Nodule size > or = 6 mm: CT at 6-12 months to confirm persistence, then CT every 2 years until 5 years Single part-solid nodule * Nodule size < 6 mm: No routine follow-up * Nodules size > or = 6 mm: CT at 3-6 months to confirm persistence. If unchanged and solid component remains < 6 mm, annual CT should be performed for 5 years Multiple nodules * Nodule size < 6 mm: CT at 3-6 months. If stable, consider CT at 2 and 4 years. * Nodules size > or = 6 mm: CT at 3-6 months. Subsequent management based on the most suspicious nodule(s) NOTE: 1) These guidelines apply to incidental nodules. These guidelines do NOT apply to patients younger than 35 years, immunocompromised patients, or patients with cancer. 2) Risk categories: * Low risk patients: Minimal or absent history of smoking and/or other known risk factors * High risk patients: History of smoking, exposure to other carcinogens, emphysema, fibrosis, upper lobe location, family history of lung cancer, etc. 3) If a nodule up to 8 mm is partly solid or is ground glass, further follow-up is required after 24 months to exclude possible slow growing adenocarcinoma. Electronically signed by: Ike Charles M.D. 10/17/2017 9:54 PM Dictated Date/Time: 10/17/2017 9:43 PM The status of this report is Signed. Draft = Not yet reviewed or approved by Radiologist. Signed = Reviewed and approved by Radiologist. ULTRASOUND VENOUS DOPPLER LWR EXT BILA CLINICAL HISTORY: Pulmonary embolism COMPARISON STUDY: No previous studies for comparison. FINDINGS: Real-time and color flow Doppler imaging were performed. Flow was seen within the femoral, popliteal and calf veins with no intraluminal thrombus demonstrated. The saphenous vein is patent. IMPRESSION: No evidence of lower extremity DVT. Electronically signed by: Jose Antonio Shea M.D. 10/18/2017 6:31 AM Dictated Date/Time: 10/18/2017 6:31 AM The status of this report is Signed. Draft = Not yet reviewed or approved by Radiologist. Signed = Reviewed and approved by Radiologist. <AttendingPhy>Matthew Cabrera M.D.</AttendingPhy> <FamilyPhy>No Doctor, Assigned</FamilyPhy> <PrimaryPhy>No Doctor, Assigned</PrimaryPhy> <UnitNumber> [id number]</UnitNumber> <VisitNumber>[id number]</VisitNumber> <PatientName> CARMEN GONSALEZ</PatientName> <DateOfBirth>1950</DateOfBirth> <Location> [facility]</Location> <ServiceDate>10/17/17</ServiceDate> <MNE>ESINDI</MNE> < OrderingPhy Consultations: Pulmonary Medicine Medication Reconciliation New Medications: Apixaban (Eliquis Starter Pack) 5 Mg Tab 1 UNIT PO UD for 30 Days, #1 UNIT Per instructions 10 mg (2 tab) BID x 7 days, then 5 mg (1 tab) BID thereafter Atorvastatin (Lipitor) 40 Mg Tab 40 MG PO QAM for 30 Days, #30 TAB Continued Medications: Albuterol Hfa (Ventolin Hfa) 200 Puffs/71654 Mcg Aers 2 PUFFS INH Q6H PRN for SOB/Wheezing Alprazolam (Xanax) 1 Mg Tab 1 MG PO QID PRN for Anxiety Aspirin (Aspirin Ec) 81 Mg Tab 81 MG PO DAILY Cholecalciferol (Vitamin D3) 2,000 Unit Cap 2000 INTER.UNIT PO DAILY, CAP Fluticasone Propionate (Nasal) (Flonase Allergy Relief) 50 Mcg/Act Spr 2 SPRAYS SHOLA DAILY PRN for Allergy Symptoms Discharge Exam A 10 point review of systems was negative unless in hospital course. Physical Exam: General Appearance: WD/WN, no apparent distress Eyes: normal inspection, EOMI ENT: hearing grossly normal, pharynx normal Neck: supple, no adenopathy, no JVD Respiratory/Chest: lungs clear, no respiratory distress Cardiovascular: regular rate, rhythm, no gallop, no murmur Abdomen / GI: normal bowel sounds, non tender, soft Extremities: no calf tenderness, no pedal edema Neurologic/Psychiatric: alert, normal mood/affect, oriented x 3 Skin: normal color, warm/dry, no rash Lymphatic: no adenopathy Hospital Course 66 yo M with pMHx of cerebellar degeneration, h/o TIA, h/o colitis with known diverticulosis, known lung nodule, significant tobacco abuse presented to the ER with right-sided chest pain. CT angiogram significant for right-sided pulmonary embolism. His hospital course is as follows: Right-sided subsegmental pulmonary embolism - Initiated Apixaban; discharged on starter back: 10 mg BID x 7 days, then 5 mg BID x 6 months - LE Doppler negative - Pending workup: Coag studies pending at discharge - Regarding malignancy as a cause of PE, most recent colonoscopy in 2016. No evidence of malignancy. Had 2 polyps in the ascending colon that were resected. 1 was a tubular adenoma, while the other was reported as non- specific inflammation but no mention of concern for malignancy. At this point, continue colonoscopy surveillance as previously instructed. Pulmonary nodules: - CT: Multiple solid pulmonary nodules measuring up to 6 mm - Pulm consulted; recommendations appreciated - To be seen by [facility] Pulmonary as outpatient in 2 weeks - TB Quantiferon test pending at discharge Presumed COPD - Per CT scan on admission - CT: extensive emphysematous changes/bullae at the apices and bronchial wall thickening likely smoking related lung injury - Albuterol at discharge - Will follow with [facility] pulmonary medicine as outpatient in 2 weeks H/o TIA - Continue aspirin - Started on Atorvastatin 40 mg at discharge Anxiety - Continued Xanax Tobacco abuse - nicotine patch ordered - Encouraged cessation at discharge The patient was doing well on the day of discharge. He felt well within 24 hours of admission/treatment and was discharged home in stable condition. He was advised to follow-up with PCP in 1 week. He will see [facility] pulmonology in 2 weeks. When hypercoagulability studies and quantiferon testing available, we will relay the results. Resident Physician Supervision Note: I interviewed and examined the patient. Discussed with Dr. Boothe and agree with findings and plan as documented in the note. Any exceptions or clarifications are listed here: None Documented By: Jone Grey feeling good wants to go home extensive discussion on PE / etiology/ sx / treatment and follow up. pt asked many good questions all answered to the best of my ability vitals ntoed nad breathing unlabored no pallor or icterus PE - tobacco abuse most likely as risk. has nodules but not clearly malignant and not a large enough influence to explain hypercoagulability. UTD on colo - last one last year. f/u PCP for any other required screenings pulmonary nodules - f/u w pulmonary, reimaging per fleishner criteria Total Time Spent: Greater than 30 minutes This includes examination of the patient, discharge planning, medication reconciliation, and communication with other providers. Discharge Instructions Please refer to the electronic Patient Visit Report (Discharge Instructions) for additional information. Additional Copies To Wilson Gillespie D.O.; Dre Venegas M.D.
[2017-10-20 11:50] LABS: QUANTIFERON NEGATIVE (NEGATIVE); QUANTIFERON NIL 0.14 IU/ML
[2017-10-22 12:29] LABS: ANTICARDIOLIPID AB IGA <11 APL (< = 11)
== END 2017-10-18 16:52 | disposition home or self-care (01) ==
LOC: C.EDB 19:25 → C.MED 10-18 00:50 → ENRESERV 10-18 01:12
PROVIDERS: ADMIT Student in an Organized Health Care Education/Training Program; ATTEND Family Medicine
DX: I26.99 Other pulmonary embolism without acute cor pulmonale (principal); J44.9 Chronic obstructive pulmonary disease, unspecified; F17.200 Nicotine dependence, unspecified, uncomplicated; K57.30 Diverticulosis of large intestine without perforation or abscess without bleeding; E78.5 Hyperlipidemia, unspecified; I65.21 Occlusion and stenosis of right carotid artery; R91.1 Solitary pulmonary nodule; I45.10 Unspecified right bundle-branch block; Z86.73 Personal history of transient ischemic attack (TIA), and cerebral infarction without residual deficits

== ENCOUNTER 2022-09-14 08:19 | Inpatient (IN) ==
--- NOTE | 2022-08-09 09:37 | PAT Medication Instructions ---
Medication Instructions Date of Service August 09, 2022 Home Medications Medication Instructions Recorded albuterol sulfate 90 mcg/actuation 2 puff inhalation Q6H PRN 09/23/21 aerosol inhaler Shortness Of Breath Or Wheezing #18 grams acalabrutinib 100 mg capsule 100 mg PO Q12H #60 caps 10/07/21 (Calquence) sildenafil (pulm.hypertension) 20 20 mg PO DAILY PRN sexual activity 12/30/21 mg tablet #90 tabs propranolol 10 mg tablet 10 mg PO BID #60 tabs 06/16/22 alprazolam 1 mg tablet (Xanax) 1 mg PO QID PRN Anxiety clopidogrel 75 mg tablet 75 mg PO HS albuterol sulfate 90 mcg/actuation aerosol inhaler 2 puff inhalation Q6H PRN Radha rtness Of Breath Or Wheezing acalabrutinib 100 mg capsule (Calquence) 100 mg PO Q12H sildenafil (pulm.hypertension) 20 mg tablet 20 mg PO DAILY PRN sexual activity propranolol 10 mg tablet 10 mg PO BID aspirin 81 mg tablet,delayed release (Adult Low Dose Aspirin) 81 mg PO HS rosuvastatin 10 mg tablet 10 mg PO HS umeclidinium 62.5 mcg-vilanterol 25 mcg/actuation powdr for inhalation (Anoro Ellipta) 1 inh inhalation QAM ASK your prescriber and surgeon clopidogrel 75 mg tablet 75 mg PO HS aspirin 81 mg tablet,delayed release (Adult Low Dose Aspirin) 81 mg PO HS acalabrutinib 100 mg capsule (Calquence) 100 mg PO Q12H STOP taking 24 hours before surgery sildenafil (pulm.hypertension) 20 mg tablet 20 mg PO DAILY PRN sexual activity Take morning of surgery With a small sip of water, OTHERWISE NOTHING TO EAT OR DRINK AFTER MIDNIGHT: alprazolam 1 mg tablet (Xanax) 1 mg PO QID PRN Anxiety (if needed) albuterol sulfate 90 mcg/actuation aerosol inhaler 2 puff inhalation Q6H PRN Shortness Of Breath Or Wheezing (use if needed; please bring rescue inhaler with you to hospital day of surgery if possible) propranolol 10 mg tablet 10 mg PO BID umeclidinium 62.5 mcg-vilanterol 25 mcg/actuation powdr for inhalation (Anoro Ellipta) 1 inh inhalation QAM Take evening before surgery alprazolam 1 mg tablet (Xanax) 1 mg PO QID PRN Anxiety (if needed) albuterol sulfate 90 mcg/actuation aerosol inhaler 2 puff inhalation Q6H PRN Shortness Of Breath Or Wheezing (if needed) propranolol 10 mg tablet 10 mg PO BID rosuvastatin 10 mg tablet 10 mg PO HS Other Notes If you have any questions please call us at [phone] or [phone] or [phone] or [phone]
--- NOTE | 2022-08-10 13:58 | Anesthesiology Consultation ---
Date of Service August 10, 2022 Assessment & Plan (1) Encounter for pre-operative examination: - COVID screening: Per assessment on 08/10: No known COVID-19 positive contacts or current COVID-19 related symptoms. Travel screen negative. At surgeon discretion if preop Covid testing being done. - ASA/plavix instructions per surgeon/prescriber - Anxious: Pt anxious regarding upcoming surgery/anesthesia. Requests consid eration of preop anxiolytic if possible- pt to discuss further with anesthesiologist DOS. - Awaiting most recent cardiology office visit note (Dr. Mosher). Patient otherwise acceptable risk for surgery. Chart Review Chart Review: Patient seen in Pre Admission Testing Teaching & Discussion Pre-Anesthesia Teaching/Discussion Notes: Instructed NPO after midnight before surgery,except medications with 15 cc of water. Medication instructions provide d according to the PAT guidelines. History Surgery Operation Date: 09/14/22 08:00 Proposed Procedures p Right Transcarotid Artery Revascularization - Mart Villagomez MD Height/Weight Height: 5 ft 9 in Weight: 63.9 kg Allergies Allergy/AdvReac Type Severity Reaction Status Date / Time prednisone AdvReac Mild Anxiety Verified 08/06/22 15:25 Medications Home Medications Medication Instructions Recorded Confirmed Last Taken alprazolam 1 mg tablet (Xanax) 1 mg PO QID PRN Anxiety 02/07/19 08/06/22 Unknown clopidogrel 75 mg tablet 75 mg PO HS 09/03/20 08/06/22 Unknown albuterol sulfate 90 mcg/actuation 2 puff inhalation Q6H PRN 09/23/21 08/06/22 Unknown aerosol inhaler Shortness Of Breath Or Wheezing #18 grams acalabrutinib 100 mg capsule 100 mg PO Q12H #60 caps 10/07/21 08/06/22 Unknown (Calquence) sildenafil (pulm.hypertension) 20 20 mg PO DAILY PRN sexual activity 12/30/21 08/06/22 Unknown mg tablet #90 tabs propranolol 10 mg tablet 10 mg PO BID #60 tabs 06/16/22 08/06/22 Unknown aspirin 81 mg tablet,delayed 81 mg PO HS 08/04/22 08/06/22 Unknown release (Adult Low Dose Aspirin) rosuvastatin 10 mg tablet 10 mg PO HS 08/06/22 08/06/22 Unknown umeclidinium 62.5 mcg-vilanterol 1 inh inhalation QAM 08/06/22 08/06/22 Unknown 25 mcg/actuation powdr for inhalation (Anoro Ellipta) Past Medical History Medical History Anxiety 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 Per patient, ended up with "with long covid"/residual symptoms of fingertip pain/numbness, memory impairment, palms bumps with "blue streak" > resolved currently w/exception of memory impairment History of CVA (cerebrovascular accident) Small infarct on remote MRI 10+ years ago (MRI was done due to the cerebellar ataxia) Hx of cerebellar ataxia Remote diagnosis 10+ years ago, under surveillance with surveillance MRIs, seen more recently by new neurologist ([facility] in [place]) who feels that patient does not have this Hx of renal calculi Lymphoid leukemia hx oral chemo (Calquence on hold x 2+ months) Multiple pulmonary nodules Under surveillance with CTS Pulmonary embolism Several years ago Pulmonary nodule seen on imaging study hx Right bundle [facility]) [facility] Right shoulder pain recently had an injection for this Exercise / Class Metabolic Activity II 4-5 Yardwork/Stairs/Walk up hill (one FS (no CP, no SOB)) Past Family History Family History Mother Breast cancer Father Heart disease Denies family history of Ovarian cancer Prostate cancer Myocardial infarction Colorectal cancer Past Surgical History Surgical History History of tonsillectomy and adenoidectomy Hx of colonoscopy Past Anesthesia History No Hx of Anesthesia Complications and No Family Hx of Anesthesia Complications History of PONV No Hx of PONV and No Hx of Motion Sickness Social History Smoking Status: Current every day smoker tobacco type: cigarettes Smoking cigarettes per day: 15 cigs/day Do You Dip or Chew Tobacco: No Hx Alcohol Use: No Hx Substance Use: No substance use type: does not use Review of Systems Patient denies chest pain, shortness of breath, dyspnea on exertion, fever, chills, cough, wheezing, palpitations. Physical Exam Vital Signs VITALS BP 108/62 P 56 TEMP 98.4 SP02 97%RA RESP 18 PHYSICAL Mildly decreased cervical extension range of motion. Full TMJ range of motion. TMD 3 finger breaths Mallampati Score 1 Dentition: missing molars Lungs: clear throughout to auscultation Cardiac: regular rate and rhythm, no murmurs noted Spine: normal Carotid arteries: negative bruit Extremities: no edema Lab Results Anesthesia Preop Results Results Anesthesia Widget: WBC 8.29 K/ul (4.8-10.8) 08/10/22 Hgb 14.2 g/dl (14.0-18.0) 08/10/22 Hct 41.6 % (42.0-52.0) L 08/10/22 Plt 258 K/uL (130-400) 08/10/22 Na 140 mmol/L (136-145) 08/10/22 K 4.4 mmol/L (3.5-5.1) 08/10/22 Cl 108 mmol/L (98-107) H 08/10/22 CO2 28 mmol/L (21-32) 08/10/22 BUN 24 mg/dl (6-23) H 08/10/22 Creat 0.92 mg/dl (0.6-1.4) 08/10/22 Glucose Level 117 mg/dl (70-99(Fasting)) H 08/10/22 PT 11.2 Seconds (9.0-12.0) 08/10/22 PTT 26.5 Seconds (21.0-31.0) 08/10/22 INR 1.1 (0.9-1.1) 08/10/22 Blood Type A Positive 08/10/22 Antibody Screen NEGATIVE 08/10/22 Testing Electrocardiogram Date: 08/10/22 Unusual P axis, possible ectopic atrial rhythm at 55bpm. RBBB. No significant change compared to 09/17/2017 per supervising nurse comparison* Chest X-Ray Date: 08/10/22 FINDINGS: PA and lateral chest radiographs are compared to study dated 07/28/2021 and correlated with chest CT dated 01/15/2022. The cardiomediastinal silhouette is top normal for projection noting atherosclerotic calcification of the thoracic aorta. Emphysema and chronic interstitial thickening is similar to previous. Foci of parenchymal scarring are seen throughout both lungs. No airspace consolidation or pleural effusion is identified. Apical scarring is noted. There is no pneumothorax. The skeletal structures are osteopenic. The bony thorax appears intact. IMPRESSION: Emphysematous change with no active disease in the chest. Pulmonary Function Test Date: 03/10/22 Mild to moderate obstructive lung dysfunction, insignificant bronchodilator response. Normal TLC and normal ERV. Mild decrease in DLCO. COVID-19 Risk Screen Screening Information COVID-19 Screen Date: 08/10/22 Exposure 21 Days Family/Household +COVID Last 21 Days: No Exposure 10 Days Any COVID Exposure Last 10 Days: No Symptoms Last 10 Days Experienced COVID Sx Last 10 Days: No + COVID 0-90 Days COVID + in Last 0-90 Days: No
--- NOTE | 2022-09-14 07:41 | History & Physical Report ---
Date of Service September 14, 2022 Assessment & Plan (1) Stenosis of right internal carotid artery: Plan: At this point being there is narrowing of greater than 80% on exam we recommended intervention of the right carotid artery. We discussed endarterectomy versus stenting both transfemoral and transcarotid approach. After discussion elected to go ahead with a trans carotid artery revascularization of the right internal carotid artery. I have discussed the risks options and benefits of the procedure with the patient. The patient understands the risks options and benefits and agrees to the procedure. History of Present Illness Chief Complaint: Right internal carotid artery stenosis Primary Care Provider: NOREEN Jeffries Mr Monique is a 71-year-old gentleman who claims that 10 years ago he had a MRI which showed a small infarct. He is not aware what side it was on. He has been follow-up on carotid disease in the past. Last ultrasound that we have showed a peak systolic velocity on the right side of 413/122 with a ICA ratio of 6.68. He subsequently had a CT angiogram which showed a greater than 80% narrowing of his right internal carotid artery. Left side has approximately less than 50% narrowing. He is asymptomatic at this time. He has no complaints of cerebrovascular insufficiency. He does not complain that he has had any symptoms in the past even though his MRI showed a stroke. He does have a small 3 mm cerebral aneurysm of the A1 segment of the left side. He denies any cl audication. He denies any discoloration lower extremities. He does give a history of palpitations. He has a echocardiogram done in November of last year which showed ejection fraction of 60%. He had normal wall motion at that time. Allergies Allergy/AdvReac Type Severity Reaction Status Date / Time prednisone AdvReac Mild Anxiety Verified 09/02/22 13:39 Home Medications Medication Instructions Recorded Confirmed Type alprazolam 1 mg tablet (Xanax) 1 mg PO QID PRN Anxiety 02/07/19 09/02/22 History clopidogrel 75 mg tablet 75 mg PO HS 09/03/20 09/02/22 History albuterol sulfate 90 mcg/actuation 2 puff inhalation Q6H PRN 09/23/21 09/02/22 Rx aerosol inhaler Shortness Of Breath Or Wheezing #18 grams sildenafil (pulm.hypertension) 20 20 mg PO DAILY PRN sexual activity 12/30/21 09/02/22 Rx mg tablet #90 tabs propranolol 10 mg tablet 10 mg PO BID #60 tabs 06/16/22 09/02/22 Rx aspirin 81 mg tablet,delayed 81 mg PO HS 08/04/22 09/02/22 History release (Adult Low Dose Aspirin) umeclidinium 62.5 mcg-vilanterol 1 inh inhalation QAM 08/06/22 09/02/22 History 25 mcg/actuation powdr for inhalation (Anoro Ellipta) rosuvastatin 10 mg tablet See Rx Instructions .Route 09/01/22 09/02/22 Rx .COMPLEX #90 tabs Past Med/Surg History Medical History Anxiety Bullous emphysema Carotid artery aneurysm Small 3mm cerebral aneurysm of A1 segment of the left side per vascular notes Carotid artery stenosis COPD with emphysema Stable Depression History of COVID-19 07/28/21- fatigue, loss of appetite which caused dehydration and was admitted to [facility] for 24 hours. Per patient, ended up with "with long covid"/residual symptoms of fingertip pain/numbness, memory impairment, palms bumps with "blue streak" > resolved currently w/exception of memory impairment History of CVA (cerebrovascular accident) Small infarct on remote MRI 10+ years ago (MRI was done due to the cerebellar ataxia) Hx of cerebellar ataxia Remote diagnosis 10+ years ago, under surveillance with surveillance MRIs, seen more recently by new neurologist ([facility] in [place]) who feels that patient does not have this Hx of renal calculi Lymphoid leukemia hx oral chemo (Calquence on hold x 2+ months) Multiple pulmonary nodules Under surveillance with CTS Pulmonary embolism Several years ago Pulmonary nodule seen on imaging study hx [facility] Right shoulder pain recently had an injection for this Surgical History History of tonsillectomy and adenoidectomy Hx of colonoscopy Family History Mother Breast cancer Father Heart disease Denies family history of Ovarian cancer Prostate cancer Myocardial infarction Colorectal cancer Social History Smoking Status: Current every day smoker Tobacco Type: Cigarettes Age Started Using Tobacco: 15; packs per day: 0.25; Cigarettes Per Day: 15 cigs/day; Second Hand Exposure: Yes (hx); Do You Dip or Chew Tobacco: No; Tobacco Cessation Education Requested by Patient: No Hx Alcohol Use: No Hx Substance Use: No Preferred Language: Finnish Communication Ability: Effective Hearing Ability: Normal School Coordinator Required: No Beliefs That Will Affect Care: None marital status: Current Living Situation: Alone current occupational status: retired Other Information That Helps Us Care for You: No Feels Safe at Home: Yes Safety Concerns: Feels Safe At This Time Childhood Exposure to Second-Hand Smoke: Yes caffeine: No during the past year weight has: decreased > 10 lbs Dental Care, Regularly: Yes Physical Activity Frequency: Daily Physical Activity Frequency Comment: house cleaning Seatbelt Use: always Sunscreen Use: Yes Assistive Devices: Glasses Review of Systems All systems reviewed & are unremarkable except as noted in HPI & below Physical Exam Physical Exam: On physical exam he is awake alert and oriented x3. He is no apparent distress. His blood pressure is 134/72 on the left and 122/76 on the right. And neck within normal limits there is a right carotid bruit. Lungs are clear heart had regular rhythm exams and is benign no aneurysmal dilatation of the aorta is appreciated. Vascular exam showed radials carotids and superficial temporal arteries are +2 bilaterally. Femorals and pedal pulses are +2 bilaterally. Neurologic exam is intact motor and sensory function.
[~2022-09-14 08:19] MED LIST changes: -ALPR1TAB3 PO; +LACTATED RINGER'S 1,000 ML IV SCH; -PARO10TA PO; +ceFAZolin 2000MG 2,000 MG/15 ML SYR IV SCH
[2022-09-14] MEDS ORDERED: LIDOCAINE 2% MPF LOCAL 5 ML VIAL ONE (08:47)
[2022-09-14] MEDS ORDERED: fentaNYL citrate PF 100 MCG/2 ML VIAL ONE (08:47)
[2022-09-14] MEDS ORDERED: HEPARIN SOD (PORCINE) 1000 UNIT/ML ONE (08:47)
[2022-09-14] MEDS ORDERED: ONDANSETRON INJ 2 MG/ML 2 ML VIAL ONE (08:47)
[2022-09-14] MEDS ORDERED: PHENYLEPHRINE HCL 10 MG/ML VIAL ONE (08:47)
[2022-09-14] MEDS ORDERED: DEXAMETHASONE SOD INJ 4 MG/ML VIAL ONE (08:47)
[2022-09-14] MEDS ORDERED: ePHEDrine sulfate 50 MG/ML AMP ONE (08:47)
[2022-09-14] MEDS ORDERED: PROPOFOL IV EMULSION 10 MG/ML 20 ML VIAL IV ONE ×2 (08:47→11:39)
[2022-09-14] MEDS ORDERED: ROCURONIUM BROMIDE 10 MG/ML 5 ML VIAL IV ONE ×4 (08:47→11:39)
[2022-09-14] MEDS ORDERED: SUGAMMADEX SODIUM 200 MG/2 ML VIAL IV ONE (08:48)
[2022-09-14] MEDS ORDERED: ONDANSETRON INJ 2 MG/ML 2 ML VIAL IV PRN (09:47)
[2022-09-14] MEDS ORDERED: PROMETHAZINE HCL 6.25 MG in SODIUM CHLORIDE 0.9% 50 ML IV PRN (09:47)
[2022-09-14] MEDS ORDERED: fentaNYL citrate PF 100 MCG/2 ML VIAL IV PRN (09:47)
[2022-09-14] MEDS ORDERED: ATROPINE SULFATE 0.1 MG/ML 10ML SYR IV PRN (09:47)
[2022-09-14] MEDS ORDERED: LABETALOL HCL IV 5 MG/ML 20ML IV PRN (09:47)
--- NOTE | 2022-09-14 10:31 | History & Physical Bridge Note ---
Date of Service September 14, 2022 History & Physical Bridge Note I have examined the patient, reviewed the History & Physical and in the interval since the performance of the History & Physical I have noted the following changes of clinical significance: no changes noted
[2022-09-14] MEDS ORDERED: BUPIVACAINE/EPINEPHRINE 0.5% MPF 1:200,000 30 ML VIAL ONE (10:33)
[2022-09-14] MEDS ORDERED: ceFAZolin 330 MG/ML 1 GM VIAL ONE (10:33)
[2022-09-14] MEDS ORDERED: GLYCOPYRROLATE 0.2 MG/ML VIAL ONE (10:36)
[2022-09-14] MEDS ORDERED: MIDAZOLAM HCL 1 MG/ML 2ML VIAL ONE (11:00)
[2022-09-14] MEDS ORDERED: PHENYLEPHRINE HCL 25 MG/250 ML NSS IV ONE (11:40)
[2022-09-14] MEDS ORDERED: GELATIN SPONGE SZ 100 ONE (11:47)
[2022-09-14] MEDS ORDERED: THROMBIN FOR SOLN 20000 UNIT KIT ONE (11:48)
[2022-09-14] MEDS ORDERED: VISIPAQUE IV ONE (11:51)
[2022-09-14] MEDS ORDERED: PROTAMINE SULFATE 10 MG/ML 5 ML VIAL IV ONE (12:18)
--- NOTE | 2022-09-14 12:30 | Post Operative Brief Note ---
Immediate Post Op Note v1 Date of Surgery September 14, 2022 Pre & Post Diagnosis Operation Date: 09/14/22 10:10 Pre-Op Diagnosis: Right Internal Carotid Artery Stenosis Post-Op Diagnosis: Right Internal Carotid Artery Stenosis I identified the patient and participated in the time-out.: Yes Procedure Operation Date: 09/14/22 10:10 Actual Procedures p Right Transcarotid Artery Revascularization(Right) - Mart Villagomez MD Surgeon Mart Villagomez MD Staff Radiographer MD Dinorah Estimated Blood Loss 10 Findings Consistent with Post-Op Diagnosis Anesthesia Type General Complications none Disposition Accompanied Patient To Recovery: No Disposition: Recovery Room
--- NOTE | 2022-09-14 12:39 | Procedure Note ---
Angiogram Post Procedure Fluoroscopy Time (minutes): 2.9 Radiation (mGy): 23 Contrast: 10 Post Operative Report Pre & Post Diagnosis Operation Date: 09/14/22 10:10 Pre-Op Diagnosis: Right Internal Carotid Artery Stenosis Post-Op Diagnosis: Right Internal Carotid Artery Stenosis I identified the patient and participated in the time-out.: Yes Procedure Operation Date: 09/14/22 10:10 Actual Procedures p Right Transcarotid Artery Revascularization(Right)Ultrasound localization of the femoral vein- Mart Villagomez MD Surgeon Mart Villagomez MD Clinical Social Worker MD [facility] Estimated Blood Loss 10 Findings Consistent with Post-Op Diagnosis Specimens None Anesthesia Type General Complications None immediate Indications This is a 71-year-old with asymptomatic right carotid artery disease and stenosis of more than 80%. He was consented for right carotid artery revascularization, TCAR. Description of Procedure Patient was brought to the operating room and placed in supine position. General anesthesia was accomplished and A-line was placed. Both arms were tucked and the head was turned to the left side. Both groins and the right side of the neck and chest were prepped and draped in sterile fashion. A safety timeout was performed to identify patient's name, date of and the correct side of the procedure. A transverse skin incision was made just above the right clavicle. The skin and the platysma was incised. A plane was dissected between the 2 heads of the sternocleidomastoid. The right common carotid artery was identified and dissected. The common carotid artery was then as long with an umbilical tape. A 5-0 Prolene U stitch was placed. Patient was heparinized with 7000 of IV heparin. An ACT 3 minutes later was above 300. The left common femoral vein was identified with ultrasound. It was found to be patent and was accessed. We advanced the venous sheath over the wire and we secured it with multiple stitches. A microneedle was used to a access the common carotid artery and the microwire was advanced to the transition alexsandra on the wire. The microneedle was taken out and the micro sheath was then advanced to 2.5 cm through the common carotid artery due to limited working length. A diagnostic angiogram of the carotid artery was performed and demonstrated a right ICA and bulb stenosis. Microwire then used to engage the right external carotid artery. The micro sheath was also advanced to the right external carotid artery. The microwire was exchanged for a J-wire. The microcatheter was then removed and the TCAR sheath was advanced. The TCAR sheath was secured by 3 silk stitches to the skin edge and to the chest wall. The wire and the dilator were taken off. The flow reversal was established and confirmed by flushing through the venous sheath. An angled DeBakey clamp was used to clamp the common carotid artery. Diagnostic angiogram was performed and roadmap. A rapid exchange 5 x 25 mm balloon was advanced over an 0.014 wire. The lesion was predilated. The balloon was removed and a 8 x 30 mm TCAR stent was deployed. A completion angiogram showed well opposed stent with no residual narrowing and no distal dissection. The common carotid artery was unclamped. The flow reversal time was 10 minutes. The wire and sheath were removed. The U stitch was tied down and was hemostatic. The venous sheath was removed simultaneously and manual pressure was held for approximately 20 minutes. 25 mg of protamine was given. Hemostasis was achieved and the wound was closed in layers using 3-0 Vicryl and 4-0 subcuticular Vicryl. Dermabond was applied to the wound. All counts were correct at the end of the case. Patient tolerated the procedure and he is neuro intact upon emergence from anesthesia. Patient was accompanied to the PACU in satisfactory condition. Dr. Villagomez was present for the entirety of the case. April Mustafa Pac assisted due to lack of resident availability and was necessary for positioning, draping, retraction, wound closure deep layers, subcutaneous tissue, and skin closure and was necessary for assisting with the case. I attest to the content of the Intraoperative Record and any orders documented therein. Any exceptions are noted below.
[2022-09-14] MEDS ORDERED: oxyCODONE/ACETAMINOPHEN 5mg/325mg TAB PO PRN (13:33)
[2022-09-14] MEDS ORDERED: LACTATED RINGER'S 1,000 ML IV SCH (13:33)
[2022-09-14] MEDS ORDERED: ALBUTEROL HFA 8 GM INHALER INH PRN (13:33)
[2022-09-14] MEDS ORDERED: SILDENAFIL CITRATE 20 MG TABLET PO PRN (13:33)
--- NOTE | 2022-09-14 15:27 | Critical Care Consultation ---
Date of Consultation September 14, 2022 Assessment & Plan (1) Stenosis of right internal carotid artery: (2) History of CVA (cerebrovascular accident): (3) Lymphoid leukemia: (4) History of tobacco use: (5) Chronic obstructive pulmonary disease: (6) COPD with emphysema: (7) Multiple pulmonary nodules: (8) Abnormal chest CT: (9) Bullous emphysema: Plan 71-year-old male past medical history of hypertension, COPD, right coronary artery stenosis status post right-sided TCAR. Patient in the ICU for postop care -- Right internal carotid artery stenosis S/p right-sided TCAR 09/14/[address] Villagomez Continue with neurochecks Maintain systolic blood pressure less than 150 -- Bradycardia Likely from TCAR procedure Patient is not on any negative inotropes If there is any hemodynamic compromise atropine to be given as needed and consider starting dopamine -- COPD with bullous emphysema and chronic bronchitis Gold class C Continue with Anoro daily basis 6MWT 09/23/21:Patient walked 1120 feet, was able to maintain his saturation on room air. Lowest saturation was 89% PFT 11/24/2017: Moderate COPD with emphysema, air trapping, insignificant bronchodilator response, normal TLC, normal DLCO FVC 3.64 L 82%, FEV1 2.46 L 71%, FEV1/FVC 68%, RV 138%, TLC 100%, RV/TLC 133%, DLCO 82% --Active smoker [id number] smoking history Importance of quitting explained to the patient in depth Patient wants to quit on his own -- History of small lymphocytic lymphoma This is a likelihood of mediastinal lymphadenopathy which the patient has Follows up with oncology -- Dyslipidemia Continue with atorvastatin --Multiple pulmonary nodules Largest being 8 mm In a patient who is a heavy smoker Last CT chest 01/15/2022 showed stable 8 mm pulmonary nodules. Recommend repeat CT chest to be done 8 months from last --Prophylaxis VTE: IPC GI: None Lines: Left Radial Diet: Cardiac Plan: Monitor H&H Neurochecks as per the protocol For bradycardia continue to monitor given the patient's blood pressure is stable If there is any drop in blood pressure the patient gets symptomatic then give atropine and consider starting dopamine. Vascular surgery has also been notified regarding the bradycardic episodes Please note the above document was generated using voice recognition software. It may contain grammatical, syntax or spelling errors.Any formal questions or concerns about the content, text or information contained within the body of this dictation should be directly addressed to the provider for clarification. History of Present Illness Attending Physician: Mart Villagomez MD History of Present Illness 71-year-old male came to the hospital for TCAR Past medical history: Hypertension, anxiety,small lymphocytic lymphoma diagnosed 12/27/2018, diagnosed with COVID-25 July 2021 Patient was sent to the ICU s/p right-sided TCAR At the time of examination patient complains of mild soreness at the site of the incision He denies any headache, no blurry vision He is able to swallow ice chips without any issues No chest pain, no shortness of breath He was saturating 99% on room air. Systolic blood pressure was in the 140s. He was bradycardic in the low 50s. Able to move all the extremities without any issues. 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 Pets: Has a cat at home Allergies: Denies Asthma: No personal or family history of asthma Lung cancer: No history of lung cancer in the family Allergies Allergy/AdvReac Type Severity Reaction Status Date / Time prednisone AdvReac Mild Anxiety Verified 09/14/22 08:45 Home Medications Medication Instructions Recorded Confirmed Type alprazolam 1 mg tablet (Xanax) 1 mg PO QID PRN Anxiety 02/07/19 09/14/22 History clopidogrel 75 mg tablet 75 mg PO HS 09/03/20 09/14/22 History albuterol sulfate 90 mcg/actuation 2 puff inhalation Q6H PRN 09/23/21 09/14/22 Rx aerosol inhaler Shortness Of Breath Or Wheezing #18 grams sildenafil (pulm.hypertension) 20 20 mg PO DAILY PRN sexual activity 12/30/21 09/14/22 Rx mg tablet #90 tabs propranolol 10 mg tablet 10 mg PO BID #60 tabs 06/16/22 09/14/22 Rx aspirin 81 mg tablet,delayed 81 mg PO HS 08/04/22 09/14/22 History release (Adult Low Dose Aspirin) umeclidinium 62.5 mcg-vilanterol 1 inh inhalation QAM 08/06/22 09/14/22 History 25 mcg/actuation powdr for inhalation (Anoro Ellipta) rosuvastatin 10 mg tablet See Rx Instructions .Route 09/01/22 09/14/22 Rx .COMPLEX #90 tabs Patient History Medical History Anxiety Bullous emphysema Carotid artery aneurysm Small 3mm cerebral aneurysm of A1 segment of the left side per vascular notes Carotid artery stenosis COPD with emphysema Stable Depression History of COVID-19 07/28/21- fatigue, loss of appetite which caused dehydration and was admitted to [facility] for 24 hours. Per patient, ended up with "with long covid"/residual symptoms of fingertip pain/numbness, memory impairment, palms bumps with "blue streak" > resolved currently w/exception of memory impairment History of CVA (cerebrovascular accident) Small infarct on remote MRI 10+ years ago (MRI was done due to the cerebellar ataxia) Hx of cerebellar ataxia Remote diagnosis 10+ years ago, under surveillance with surveillance MRIs, seen more recently by new neurologist ([facility] in [place]) who feels that patient does not have this Hx of renal calculi Lymphoid leukemia hx oral chemo (Calquence on hold x 2+ months) Multiple pulmonary nodules Under surveillance with CTS Pulmonary embolism Several years ago Pulmonary nodule seen on imaging study hx Right bundle [facility] Right shoulder pain recently had an injection for this Surgical History History of tonsillectomy and adenoidectomy Hx of colonoscopy Family History Mother Breast cancer Father Heart disease Denies family history of Ovarian cancer Prostate cancer Myocardial infarction Colorectal cancer Social History Smoking Status: Current every day smoker Tobacco Type: Cigarettes Age Started Using Tobacco: 15; packs per day: 0.25; Cigarettes Per Day: 15 cigs/day; Second Hand Exposure: Yes (hx); Do You Dip or Chew Tobacco: No; Tobacco Cessation Education Requested by Patient: No Hx Alcohol Use: No Hx Substance Use: No Preferred Language: Faroese Communication Ability: Effective Hearing Ability: Normal Briquette Machine Operator Required: No Beliefs That Will Affect Care: None marital status: Current Living Situation: Alone current occupational status: retired Other Information That Helps Us Care for You: No Feels Safe at Home: Yes Safety Concerns: Feels Safe At This Time Childhood Exposure to Second-Hand Smoke: Yes caffeine: No during the past year weight has: decreased > 10 lbs Dental Care, Regularly: Yes Physical Activity Frequency: Daily Physical Activity Frequency Comment: house cleaning Seatbelt Use: always Sunscreen Use: Yes Assistive Devices: Glasses Review of Systems Review of Systems: All systems reviewed & are unremarkable except as noted in HPI & below Physical Exam Physical Exam: Constitutional: No acute distress HEENT: EOMI, PERRLA, right TCAR incision in place Respiratory system: Decreased air entry bilaterally, no wheeze, no rhonchi, mild crackles bilateral lower lobes CVS: S1-S2 positive, no murmurs or gallops Abdomen: Soft, nontender, nondistended, positive bowel sounds x4 Extremities: +2 pulses bilaterally radialis/ dorsalis pedis, no cyanosis, no edema Neuro: Awake alert oriented x3, cranial nerves II to XII grossly intact, strength 5 out of 5 bilateral upper and lower extremity Psych: Normal mood and affect G/U: No Shen Skin: no rashes, warm and dry Lymphatic: no cervical or axillary lymphadenopathy Results & Data Results & Data Vital Signs (Past 12 Hours) Vital Signs Temp Pulse Pulse Resp BP BP BP 09/14/22 14:30 79 19 108/68 09/14/22 14:15 79 25 H 108/66 09/14/22 14:00 64 16 106/67 09/14/22 13:49 65 17 120/58 L 09/14/22 13:45 70 17 09/14/22 13:41 68 20 104/67 09/14/22 13:30 36.4 C L 66 15 110/67 114/50 L 09/14/22 13:20 74 18 105/66 113/51 L 09/14/22 13:10 78 13 101/66 104/49 L 09/14/22 13:00 36.0 C L 82 14 105/48 L 102/55 L 09/14/22 08:47 09/14/22 08:47 Pulse Ox O2 Del Method 09/14/22 14:30 100 Room Air 09/14/22 14:15 97 Room Air 09/14/22 14:00 96 Room Air 09/14/22 13:49 99 Room Air 09/14/22 13:45 96 Room Air 09/14/22 13:41 97 Room Air 09/14/22 13:30 96 Room Air 09/14/22 13:20 96 Room Air 09/14/22 13:10 95 Room Air 09/14/22 13:00 97 Room Air 09/14/22 08:47 Room Air 09/14/22 08:47 Room Air Coding Level of Care Code 60295 IN/OBS CONSULT LVL 5,80M Diagnoses Stenosis of right internal carotid artery I65.21 History of CVA (cerebrovascular accident) Z86.73 Lymphoid leukemia C91.90 History of tobacco use Z87.891 Chronic obstructive pulmonary disease J44.9 COPD with emphysema J43.9 Multiple pulmonary nodules R91.[address] R93.89 Bullous emphysema J43.9
[2022-09-14] MEDS: ceFAZolin 2000MG 2,000 MG/15 ML SYR IV SCH (18:24)
[2022-09-14] MEDS: PROPRANOLOL HCL 10 MG TAB PO SCH (20:23)
[2022-09-14] MEDS ORDERED: CLOPIDOGREL BISULFATE 75 MG TAB PO SCH (21:00)
[2022-09-14] MEDS ORDERED: ASPIRIN 81 MG ECTAB PO SCH (21:00)
[2022-09-14] MEDS ORDERED: COUGH DROP (SUGAR FREE) LOZ 24 LOZ/1 BOX BUCCAL PRN (21:42)
[2022-09-14] MEDS: ALPRAZolam 0.5 MG TABLET PO PRN (21:49)
[2022-09-15] MEDS: ceFAZolin 2000MG 2,000 MG/15 ML SYR IV SCH (02:08)
[2022-09-15] MEDS: ALPRAZolam 0.5 MG TABLET PO PRN (06:57)
--- NOTE | 2022-09-15 07:01 | Critical Care Progress Note ---
Date of Service September 15, 2022 Assessment & Plan (1) Stenosis of right internal carotid artery: (2) History of CVA (cerebrovascular accident): (3) Lymphoid leukemia: (4) History of tobacco use: (5) Chronic obstructive pulmonary disease: (6) COPD with emphysema: (7) Multiple pulmonary nodules: (8) Abnormal chest CT: (9) Bullous emphysema: Plan 71-year-old male past medical history of hypertension, COPD, right coronary artery stenosis status post right-sided TCAR. Patient in the ICU for postop care -- Right internal carotid artery stenosis S/p right-sided TCAR 09/14/[address] Villagomez Continue with neurochecks Maintain systolic blood pressure less than 150 -- Bradycardia --> Improved Likely from TCAR procedure Patient is on Propranolol -- COPD with bullous emphysema and chronic bronchitis Gold class C Continue with Anoro daily basis 6MWT 09/23/21:Patient walked 1120 feet, was able to maintain his saturation on room air. Lowest saturation was 89% PFT 11/24/2017: Moderate COPD with emphysema, air trapping, insignificant bronchodilator response, normal TLC, normal DLCO FVC 3.64 L 82%, FEV1 2.46 L 71%, FEV1/FVC 68%, RV 138%, TLC 100%, RV/TLC 133%, DLCO 82% --Active smoker [id number] smoking history Importance of quitting explained to the patient in depth Patient wants to quit on his own -- History of small lymphocytic lymphoma This is a likelihood of mediastinal lymphadenopathy which the patient has Follows up with oncology -- Dyslipidemia Continue with atorvastatin --Multiple pulmonary nodules Largest being 8 mm In a patient who is a heavy smoker Last PET/CT 05/05/2022 showed no FDG uptake Repeat CT chest February [address] chest 01/15/2022 showed stable 8 mm pulmonary nodules. --Anxiety On xanax and Propranolol --Prophylaxis VTE: IPC GI: None Lines: Left Radial Diet: Cardiac Plan: In/out: +1.1 L, urine output 1070 Patient hemodynamically stable No neurodeficit Continue with Anoro on a daily basis Disposition plan as per vascular surgery Please note the above document was generated using voice recognition software. It may contain grammatical, syntax or spelling errors.Any formal questions or concerns about the content, text or information contained within the body of this dictation should be directly addressed to the provider for clarification. Admission and Anticipated Discharge Date Admission Date: September 14, 2022 Subjective Patient seen and examined at bedside. No acute distress, neurology was overnight Patient did not get a sound sleep because of being connected to monitors and staff. Denies any nausea or vomiting Able to tolerate p.o. diet without any issues Does complain of mild sore throat. Soreness at the site of the incision persist but is getting better No headache, no blurry vision Review of Systems Review of Systems: All systems reviewed & are unremarkable except as noted in Subjective Physical Exam Physical Exam: Constitutional: No acute distress HEENT: EOMI, PERRLA, right TCAR incision in place Respiratory system: Decreased air entry bilaterally, no wheeze, no rhonchi, mild crackles bilateral lower lobes CVS: S1-S2 positive, no murmurs or gallops, distant heart sounds Abdomen: Soft, nontender, nondistended, positive bowel sounds x4 Extremities: +2 pulses bilaterally radialis/ dorsalis pedis, no cyanosis, no edema Neuro: Awake alert oriented x3, cranial nerves II to XII grossly intact, strength 5 out of 5 bilateral upper and lower extremity Psych: Normal mood and affect G/U: No Shen Skin: no rashes, warm and dry Lymphatic: no cervical or axillary lymphadenopathy Results & Data Results & Data Vital Signs (Past 12 Hours) Vital Signs Temp Pulse Pulse Resp BP BP Pulse Ox 09/15/22 06:00 48 L 15 98 09/15/22 05:45 49 L 16 97 09/15/22 05:30 53 L 18 97 09/15/22 05:15 50 L 16 96 09/15/22 05:00 53 L 18 96 09/15/22 04:45 61 21 96 09/15/22 04:30 57 L 17 95 09/15/22 04:15 57 L 18 96 09/15/22 04:00 51 L 17 96 09/15/22 03:45 54 L 18 96 09/15/22 03:30 57 L 18 96 09/15/22 03:15 50 L 16 96 09/15/22 03:00 53 L 16 95 09/15/22 02:45 52 L 17 96 09/15/22 02:30 54 L 17 96 09/15/22 03:00 55 L 09/15/22 02:15 56 L 18 96 09/15/22 02:14 62 20 96 09/15/22 02:14 109/57 L 09/15/22 02:00 50 L 16 96 09/15/22 01:45 56 L 18 96 09/15/22 01:30 54 L 18 96 09/15/22 01:15 64 24 95 09/15/22 01:00 58 L 16 95 09/15/22 00:45 55 L 16 96 09/15/22 00:30 56 L 17 94 09/15/22 00:15 60 17 96 09/15/22 00:00 61 21 96 09/14/22 23:45 52 L 16 95 09/14/22 23:44 60 09/14/22 23:30 50 L 16 95 09/14/22 23:15 53 L 18 96 09/14/22 23:00 59 L 22 96 09/14/22 22:45 58 L 22 97 09/14/22 22:30 58 L 23 97 09/14/22 23:41 36.8 C 09/14/22 22:15 76 22 97 09/14/22 22:00 73 14 96 09/14/22 21:45 56 L 19 96 09/14/22 21:30 54 L 18 96 09/14/22 21:15 70 17 97 09/14/22 21:00 65 17 97 09/14/22 20:45 58 L 22 96 09/14/22 20:30 59 L 21 95 09/14/22 20:15 52 L 21 97 09/14/22 20:58 58 L 12 114/51 L 97 09/14/22 20:01 60 21 97 09/14/22 20:01 119/78 09/14/22 20:00 62 24 97 09/14/22 19:45 55 L 19 97 09/14/22 19:30 68 23 97 09/14/22 19:15 61 19 97 09/14/22 19:00 55 L 19 97 09/14/22 19:00 119/64 09/14/22 19:16 55 L 12 129/53 L 97 O2 Del Method 09/15/22 06:00 09/15/22 05:45 09/15/22 05:30 09/15/22 05:15 09/15/22 05:00 09/15/22 04:45 09/15/22 04:30 09/15/22 04:15 09/15/22 04:00 09/15/22 03:45 09/15/22 03:30 09/15/22 03:15 09/15/22 03:00 09/15/22 02:45 09/15/22 02:30 09/15/22 03:00 09/15/22 02:15 09/15/22 02:14 09/15/22 02:14 09/15/22 02:00 09/15/22 01:45 09/15/22 01:30 09/15/22 01:15 09/15/22 01:00 09/15/22 00:45 09/15/22 00:30 09/15/22 00:15 09/15/22 00:00 09/14/22 23:45 09/14/22 23:44 09/14/22 23:30 09/14/22 23:15 09/14/22 23:00 09/14/22 22:45 09/14/22 22:30 09/14/22 23:41 09/14/22 22:15 09/14/22 22:00 09/14/22 21:45 09/14/22 21:30 09/14/22 21:15 09/14/22 21:00 09/14/22 20:45 09/14/22 20:30 09/14/22 20:15 09/14/22 20:58 Room Air 09/14/22 20:01 09/14/22 20:01 09/14/22 20:00 09/14/22 19:45 09/14/22 19:30 09/14/22 19:15 09/14/22 19:00 09/14/22 19:00 09/14/22 19:16 Room Air Coding Level of Care Code 79909 SUB INP/OBS CARE 2/35MIN Diagnoses Stenosis of right internal carotid artery I65.21 History of CVA (cerebrovascular accident) Z86.73 Lymphoid leukemia C91.90 History of tobacco use Z87.891 Chronic obstructive pulmonary disease J44.9 COPD with emphysema J43.9 Multiple pulmonary nodules R91.[address] R93.89 Bullous emphysema J43.9
[2022-09-15] MEDS ORDERED: ROSUVASTATIN CALCIUM 10 MG TAB PO SCH (09:00)
[2022-09-15] MEDS ORDERED: UMECLIDINIUM/VILANTEROL 62.5/25MCG 7 PUFFS/INHALER INH SCH (09:00)
[2022-09-15] MEDS: PROPRANOLOL HCL 10 MG TAB PO SCH (10:52)
--- NOTE | 2022-09-15 11:56 | Surgery Progress Note ---
Date of Service September 15, 2022 Assessment & Plan (1) Internal carotid artery stent present: Plan: Patient had one episode of hypotension that responded to a small fluid bolus. He claims that this occurs at home and takes a couple glasses of water to get his pressure back up. His pressure has been stable since. Will d/c today if BP remains stable. Admission and Anticipated Discharge Date Admission Date: September 14, 2022 Subjective Patient complains of mild sore throat and minimal incisional pain. Denies any focal deficits. Physical Exam Constitutional: WD/WN, vitals as above Respiratory: normal respiratory effort; no respiratory distress Cardiovascular: Rate/Rhythm: regular rate and regular rhythm Vessels: normal peripheral pulses Gastrointestinal (Abdomen): Inspection/Auscultation: abdomen normal to inspection; abdomen not distended Percussion/Palpation: abdomen soft Musculoskeletal: no cyanosis or clubbing, extremities motor strength 5/5 Skin: + incision (mild ecchymosis present) Neurologic: CN's II-XI intact bilaterally and moves all extremities no new focal deficits Psychiatric: Orientation: alert and oriented x 3 Results & Data Vital Signs (Past 12 Hours) Vital Signs Temp Pulse Pulse Resp BP Pulse Ox O2 Del Method 09/15/22 10:30 70 15 94 09/15/22 10:00 62 18 97 Room Air 09/15/22 09:00 54 L 17 99 09/15/22 08:00 60 16 97 09/15/22 07:02 118/69 09/15/22 07:02 64 19 97 09/15/22 07:00 67 19 95 Room Air 09/15/22 07:00 36.6 C 09/15/22 07:10 59 L 09/15/22 06:00 48 L 15 98 09/15/22 05:45 49 L 16 97 09/15/22 05:30 53 L 18 97 09/15/22 05:15 50 L 16 96 09/15/22 05:00 53 L 18 96 09/15/22 04:45 61 21 96 09/15/22 04:30 57 L 17 95 09/15/22 04:15 57 L 18 96 09/15/22 04:00 51 L 17 96 09/15/22 03:45 54 L 18 96 09/15/22 03:30 57 L 18 96 09/15/22 03:15 50 L 16 96 09/15/22 03:00 53 L 16 95 09/15/22 02:45 52 L 17 96 09/15/22 02:30 54 L 17 96 09/15/22 03:00 55 L 09/15/22 02:15 56 L 18 96 09/15/22 02:14 62 20 96 09/15/22 02:14 109/57 L 09/15/22 02:00 50 L 16 96 09/15/22 01:45 56 L 18 96 09/15/22 01:30 54 L 18 96 09/15/22 01:15 64 24 95 09/15/22 01:00 58 L 16 95 09/15/22 00:45 55 L 16 96 09/15/22 00:30 56 L 17 94 09/15/22 00:15 60 17 96 09/15/22 00:00 61 21 96
--- NOTE | 2022-09-15 12:02 | Discharge Summary ---
Date of Service September 15, 2022 Admission Exam Per Admitting Provider On physical exam he is awake alert and oriented x3. He is no apparent distress. His blood pressure is 134/72 on the left and 122/76 on the right. And neck within normal limits there is a right carotid bruit. Lungs are clear heart had regular rhythm exams and is benign no aneurysmal dilatation of the aorta is appreciated. Vascular exam showed radials carotids and superficial temporal arteries are +2 bilaterally. Femorals and pedal pulses are +2 bilaterally. Neurologic exam is intact motor and sensory function. Principal Diagnosis Right internal carotid artery stenosis Discharge Exam Constitutional WD/WN, vitals as above Respiratory normal respiratory effort; no respiratory distress Cardiovascular Rate/Rhythm: regular rate and regular rhythm Vessels: normal peripheral pulses Gastrointestinal (Abdomen) Inspection/Auscultation: abdomen normal to inspection; abdomen not distended Percussion/Palpation: abdomen soft Musculoskeletal no cyanosis or clubbing, extremities motor strength 5/5 Skin + incision (mild ecchymosis present) Neurologic CN's II-XI intact bilaterally and moves all extremities Psychiatric Orientation: alert and oriented x 3 Discharge Data Allergies Allergy/AdvReac Type Severity Reaction Status Date / Time prednisone AdvReac Mild Anxiety Verified 09/14/22 08:45 Consultations 09/14/22 13:33 Consult Trade Clerk Routine Procedures Performed Operation Date: 09/14/22 10:10 Actual Procedures p Right Transcarotid Artery Revascularization(Right) - Mart Villagomez MD Ordered Studies 09/14/22 07:17 EV angio carotid cerv RT Routine US EV guide vascular access Routine Hospital Course (1) Internal carotid artery stent present: Patient had one episode of hypotension that responded to a small fluid bolus. He claims that this occurs at home and takes a couple glasses of water to get his pressure back up. His pressure has been stable since. Will d/c today if BP remains stable. Total Time Total Time Spent Total Time Spent (In Minutes): 0 Discharge Plan Discharge Items Patient Disposition: Home - Self-Care Reason For Visit: Right Internal Carotid Artery Stenosis Discharge Diagnosis: Right carotid stenosis Activity: Per Instructions section Non-emergency contact: Surgeon Call non-emergency contact if: your temperature is above 101.5, your wound has increased redness, your wound has increased drainage and your wound pain has increased Follow-up/Referrals: Jase Denise CRNP [Primary Care Provider] - Diet: Heart Healthy Add Attending Provider Instructions: SPECIAL CARE INSTRUCTIONS: Medications: * Continue to take Aspirin as directed. Incision Care: * You may shower, but do not rub incision. You may let the warm soapy water run over it. Be sure to dry the incision well after bathing. * Do not shave directly over the incision until it is healed. * DO NOT IMMERSE THE INCISION IN A TUB/POOL/etc. UNTIL HEALED. Restrictions: * Do not drive for at least one week or if you are still taking any narcotic pain medication. * Do not lift anything heavier than a gallon of milk for one week after going home. Possible Complications: * Numbness - It is normal to have some numbness around the incision. Numbness can extend beyond the incision to areas of the neck, ear and face. The numbness is due to bruising of nerves during the surgery and will gradually improve over a period of months. * Hoarseness/Difficulty Speaking and Swallowing - The bruising of nerves in the neck can also cause a hoarse voice, difficulty speaking or swallowing. This may improve over time, HOWEVER, if it continues for more than a few days please contact our office ([phone]). * Excessive Swelling - There will be some swelling immediately after surgery which usually resolves within one week. If you notice that the swelling is getting worse, notify your surgeon ([phone]). * Drainage/Bleeding - If there is any drainage or bleeding, it should be a very small amount (less than a teaspoon per day). If you have excessive bleeding or drainage from the incision, call your surgeon ([phone]) right away. ACTIVATION OF EMERGENCY MEDICAL SYSTEM: Continue on Aspirin, Plavix, and statin non stop for 30days post op. If you need to stop it after that for the first year, notify my office Call 911, immediately, if you experience any of the following: Warning Signs and Symptoms of Stroke: * Sudden numbness or weakness of the face, arm or leg, especially on one side of the body * Sudden confusion, trouble speaking or understanding * Sudden trouble seeing in one or both eyes * Sudden trouble walking, dizziness, loss of balance or coordination * Sudden severe headache with no cause Do not delay calling 911 if you experience any warning signs or symptoms of a stroke. Delay in seeking medical attention may affect what treatments can be given to you. Risk Factors for Stroke: You can reduce your chances of stroke by working with your medical provider to adopt a healthy lifestyle. Some specific ways to lower your chance of stroke are: * If you are a smoker, now is the time to stop smoking cigarettes * If you are diabetic, improve the control of your blood sugars * Avoid excessive amounts of alcohol * Control high blood pressure * Lose weight if you are overweight * Be sure to lead an active lifestyle * Eat a healthy diet low in salt, cholesterol and fat You should know about other risk factors for stroke that you are unable to control. These include: * Age 55 years or older * Male gender * Certain racial groups: , or / * Family History of Stroke, Mini stroke or Heart Attack * Sickle Cell Disease You will be receiving a call from the Vascular Surgery Nurse after you are discharged. FOLLOW UP VISIT: It is important for you to keep your follow up appointments with your medical provider. Keep any scheduled doctor appointments. Pending Studies at Discharge: No Stand-Alone Forms: My [facility], Smoking Cessation Medications and DC Order Prescriptions: New oxycodone-acetaminophen [Percocet] 5-325 mg tablet 1 tab PO Q8H PRN (Reason: pain) Qty: 10 0RF Continued propranolol 10 mg tablet 10 mg PO BID Qty: 60 5RF rosuvastatin 10 mg tablet See Rx Instructions .ROUTE .COMPLEX Qty: 90 0RF Dose Instruction: TAKE ONE TABLET BY MOUTH EVERY DAY Rx Instructions: TAKE ONE TABLET BY MOUTH EVERY DAY alprazolam [Xanax] 1 mg tablet 1 mg PO QID PRN (Reason: Anxiety) aspirin [Adult Low Dose Aspirin] 81 mg tablet,delayed release (DR/EC) 81 mg PO HS clopidogrel 75 mg tablet 75 mg PO HS albuterol sulfate 90 mcg/actuation HFA aerosol inhaler 2 puff inhalation Q6H PRN (Reason: Shortness Of Breath Or Wheezing) Qty: 18 3RF sildenafil (pulm.hypertension) 20 mg tablet 20 mg PO DAILY PRN (Reason: sexual activity) Qty: 90 2RF Rx Instructions: start with 20 mg, can increase dose to desired effect up to maximum of 100 mg as needed. Anoro Ellipta 62.5-25 mcg/actuation blister with device 1 inh inhalation QAM Discharge Orders: Discharge Order (Routine); Ordered 09/15/22 Ordered By: Mart Villagomez Admission Data Admit Date/Time: 09/14/22 12:24 Attending Provider: Mart Villagomez Admit Provider: Mart Villagomez Primary Care Provider: Jase Denise Other Providers: Catrachito Nguyen ; Jim Mello ; Juan Carlos Hill ; Deyvi Kitchen ; Khoi Pak ; Dylan Donovan ; Blanca Galvan ; Kenroy Dotson ; Leticia Mills
--- NOTE | 2022-09-16 12:41 | Anesthesiology Progress Note ---
Date of Service September 16, 2022 Anesthesia Post Procedure Transfer of Care Handoff Completed per policy Notes Mental Status: alert / awake / arousable Patient Amnestic to Procedure: Yes Nausea / Vomiting: adequately controlled Pain: adequately controlled Airway Patency, RR, SpO2: stable & adequate BP & HR: stable & adequate Hydration State: stable & adequate Anesthetic Complications: no major complications apparent
== END 2022-09-15 12:44 | disposition home or self-care (01) | DRG 36 ==
LOC: ASU 08:19 → 1E 12:24
PROC: EV.TCAR (2022-09-14 10:10)